=== PATIENT | female | born 1965 | race Caucasian/White ===

== ENCOUNTER 2019-11-16 | Emergency (ER) | payer SELFPAY ==
[2019-11-16 11:08] LABS: HEMATOCRIT 49.5 % (37.0-47.0); HEMOGLOBIN 16.4 g/dl (12.0-16.0); IMMATURE GRANULOCYTES 0.3 % (0.0-5.0); MEAN CELL VOLUME 84.2 fL CALC (80.0-100.0); MEAN CORPUSCULAR HGB 27.9 pG CALC (26.0-32.0); MEAN CORPUSCULAR HGB CONC 33.1 g/L CALC (32.0-36.0); NEUT# 4.96 thou/uL (2.00-7.15); RED BLOOD COUNT 5.88 mill/uL (4.20-5.60); RED CELL DISTRI WIDTH 12.4 % (11.5-15.5)
[2019-11-16 11:48] LABS: ALBUMIN 4.2 g/dL (3.2-5.0); ALKALINE PHOSPHATASE 112 u/l (38-126); ANION GAP 18 (6-22 (CALC)); BILIRUBIN, TOTAL 0.6 mg/dL (0.0-1.4); BUN 13 mg/dL (7-17); BUN/CREATININE RATIO 26 (12-20 (CALC)); CARBON DIOXIDE 25 mmol/l (22-30); CHLORIDE 97 mmol/l (95-108); CREATININE 0.5 mg/dL (0.5-1.0); GFR > 60 ML/MIN (>=60 (CALC)); GFR FOR AFR.AMER. > 60 ML/MIN (>=60 (CALC)); POTASSIUM 4.3 mmol/l (3.5-5.1); SGOT/AST 19 u/l (14-36); SODIUM 135 mmol/l (137-146)
[2019-11-16] MEDS ORDERED: HUMALOG 751000 UNITS IV (12:01)
[2019-11-16 12:20] LABS: INTERNATIONAL NORMALIZED RATIO 0.9 RATIO (0.7-1.3); PROTHROMBIN TIME 9.7 SECONDS (9.0-12.5)
== END 2019-11-16 13:53 | disposition home or self-care (01) | DRG 72 ==
PROVIDERS: Family Medicine
DX: G93.9 Disorder of brain, unspecified (principal); E11.9 Type 2 diabetes mellitus without complications; I10 Essential (primary) hypertension; Z79.4 Long term (current) use of insulin

== ENCOUNTER 2020-04-20 02:03 | Emergency (ER) | payer MEDICAID ==
[~2020-04-20] VITALS: Ht 157.5 cm; Wt 119.0 kg
[~2020-04-20 02:03] MED LIST: HUMALOG 751000 UNITS IV
[2020-04-20 02:54] LABS: IMMATURE GRANULOCYTES 0.5 % (0.0-5.0); MEAN CELL VOLUME 86.9 fL CALC (80.0-100.0); MEAN CORPUSCULAR HGB 28.7 pG CALC (26.0-32.0); NEUT# 11.96 thou/uL (2.00-7.15); RED BLOOD COUNT 4.81 mill/uL (4.20-5.60); RED CELL DISTRI WIDTH 12.8 % (11.5-15.5)
[2020-04-20 02:58] LABS: HEMATOCRIT 41.8 % (37.0-47.0); HEMOGLOBIN 13.8 g/dl (12.0-16.0)
[2020-04-20 03:03] LABS: ALBUMIN 3.4 g/dL (3.2-5.0); ALKALINE PHOSPHATASE 89 u/l (38-126); AMYLASE 94 u/l (30-110); BUN 22 mg/dL (7-17); BUN/CREATININE RATIO 48 (12-20 (CALC)); CHLORIDE 97 mmol/l (95-108); CREATININE 0.5 mg/dL (0.5-1.0); GFR > 60 ML/MIN (>=60 (CALC)); GFR FOR AFR.AMER. > 60 ML/MIN (>=60 (CALC)); LIPASE 973 u/l (23-300); POTASSIUM 3.5 mmol/l (3.5-5.1); SGOT/AST 30 u/l (14-36); SODIUM 134 mmol/l (137-146); TOTAL PROTEIN 6.6 g/dL (6.3-8.2)
[2020-04-20 03:15] LABS: ANION GAP 10 (6-22 (CALC)); CARBON DIOXIDE 31 mmol/l (22-30); MYOGLOBIN 44 ng/mL (0 - 62)
[2020-04-20 05:05] LABS: URINE BILIRUBIN - DIPSTICK NEGATIVE (NEGATIVE); URINE BLOOD DIPSTICK NEGATIVE (NEGATIVE); URINE COLOR YELLOW; URINE GLUCOSE - DIPSTICK >=1000 mg/dL (NEGATIVE); URINE KETONE 40 mg/dL (NEGATIVE); URINE LEUK ESTERASE NEGATIVE (NEGATIVE); URINE NITRITE - DIPSTICK NEGATIVE (Negative); URINE PROTEIN - DIPSTICK NEGATIVE (NEG-TRACE)
[2020-04-20 05:20] VITALS: BP 175/92
== END 2020-04-20 05:20 ==
LOC: ED 02:03
PROVIDERS: Emergency Medicine
DX: R11.10 Vomiting, unspecified (principal); E11.65 Type 2 diabetes mellitus with hyperglycemia; D49.6 Neoplasm of unspecified behavior of brain; I10 Essential (primary) hypertension; Z79.4 Long term (current) use of insulin; Z11.59 Encounter for screening for other viral diseases
CPT/HCPCS: Q9967

== ENCOUNTER 2020-05-01 09:36 | Inpatient (IN) | payer MEDICAID ==
[~2020-05-01] VITALS: Ht 157.5 cm; Wt 113.0 kg
--- NOTE | 2020-05-01 09:36 | NUR ---
PT TO ROOM VIA EMS STRETCHER , PT IN NO DISTRESS. VSS. PT NOTED TO HAVE LT ARM ATAXIA, LT FACIAL DROOP, LT VISUAL FIELD DEFICIT. PT STATES THESE HAVE BEEN PROGRESSIVE EFFECTS OF BRAIN TUMOR OVER LAST 4 MONTHS. PT IS ALERT AND ORIENTED X4 AND HAS SLIGHTLY THICKENED SPEECH. PT HAS NO DRIFT OF UPPER OR LOWER EXTREMITIES BUT STATES PROGRESSIVE WEAKNESS TO LT UPPER AND LOWER EXTREMITY FOR MONTHS
[2020-05-01] MEDS ORDERED: FAMOTIDINE20 M1 PO (10:28)
[2020-05-01] MEDS ORDERED: FLUOXETINE20 MG PO (10:29)
[2020-05-01] MEDS ORDERED: NOVOLIN 70/30 INNLT SC (10:30)
[2020-05-01] MEDS ORDERED: DEXAMETHASON2 MG PO (10:32)
--- NOTE | 2020-05-01 10:36 | NUR ---
FULL BEDBATH GIVEN. PT INCONTINENT OF LOOSE YELLOW STOOLS AND URINE. PURE WICK PLACED. VSS. PT IN NO DISTRESS
[2020-05-01 11:19] LABS: HEMATOCRIT 45.3 % (37.0-47.0); HEMOGLOBIN 14.7 g/dl (12.0-16.0); IMMATURE GRANULOCYTES 0.4 % (0.0-5.0); MEAN CELL VOLUME 86.8 fL CALC (80.0-100.0); MEAN CORPUSCULAR HGB 28.2 pG CALC (26.0-32.0); MEAN CORPUSCULAR HGB CONC 32.5 g/dL CAL (32.0-36.0); NEUT# 7.73 thou/uL (2.00-7.15); RED BLOOD COUNT 5.22 mill/uL (4.20-5.60); RED CELL DISTRI WIDTH 13.2 % (11.5-15.5)
[2020-05-01 11:35] LABS: PROTHROMBIN TIME 10.1 SECONDS (9.0-12.5)
--- NOTE | 2020-05-01 11:36 | NUR ---
PT STATES SHE HAS A HX OF DYSPHAGIA AND USES PUREED DIET AND HONEY THICKENED LIQUIDS. VSS. RESP EVEN AND UNLABORED. CALLED PTS SON AT HER REQUEST TO INFORM OF ADMIT AND REQUEST OF PT TO BRING HER READING GLASSES
[2020-05-01 11:44] LABS: ALBUMIN 3.6 g/dL (3.2-5.0); ALKALINE PHOSPHATASE 80 u/l (38-126); ANION GAP 9 (6-22 (CALC)); BILIRUBIN, TOTAL 0.9 mg/dL (0.0-1.4); BUN 13 mg/dL (7-17); BUN/CREATININE RATIO 19 (12-20 (CALC)); C-REACTIVE PROTEIN 0.8 mg/dL (0-0.9); CARBON DIOXIDE 30 mmol/l (22-30); CHLORIDE 100 mmol/l (95-108); CREATININE 0.7 mg/dL (0.5-1.0); GFR > 60 ML/MIN (>=60 (CALC)); GFR FOR AFR.AMER. > 60 ML/MIN (>=60 (CALC)); MAGNESIUM 1.9 mg/dL (1.6-2.3); POTASSIUM 3.9 mmol/l (3.5-5.1); SGOT/AST 14 u/l (14-36); SODIUM 135 mmol/l (137-146); TOTAL PROTEIN 6.6 g/dL (6.3-8.2)
[2020-05-01 12:11] LABS: TSH, 3RD GENERATION 1.04 uIU/mL (0.47 - 4.68)
--- NOTE | 2020-05-01 12:30 | NUR ---
PT GIVEN PUREED LUNCH TRAY WITH HONEY THICKENED LIQUIDS. PT TOLERATED WELL. NO COUGHING NOTED
--- NOTE | 2020-05-01 15:24 | NUR ---
PT INCONTINENT OF URINE, NATI CARE AND LINEN CHANGE RENDERED. WICK WAS IN PLACE BUT DID NOT CATCH URINE. VSS. PT UPDATED ON WAIT TIME FOR ROOM
--- NOTE | 2020-05-01 16:18 | NUR ---
PT RESTING IN BED, VOICES NO COMPLAINTS OR NEEDS AT THIS TIME. PT ADVISED OF WAIT TIME WHILE WAITING FOR ADMISSION. PT VERBALIZED UNDERSTANDING.
--- NOTE | 2020-05-01 16:20 | NUR ---
SON AT BEDSIDE, SHIRLEY FROM [facility] AND SPOLE TO SON RE: MOTHERS CARE AND PLACEMENT
--- NOTE | 2020-05-01 18:45 | NUR ---
NURSE TO NURSE REPORT CALLED TO [facility] GRAH[facility]. EMILY GRAHAM NOTIFIED PT PUREED DIET WITH HONEY THICKENED LIQUIDS.
--- NOTE | 2020-05-01 19:13 | NUR ---
PT ARRIVED TO [facility] VIA STRETCHER ACCOMPANIED BY ER NURSE, DINNER PROVIDED. MECHANICAL SOFT AND THICKENED LIQUIDS, PT FED SELF TOLERATED WELL. PT HAS A FLAT AFFECT, ALERT AND ORIENTED X3, NO EDEMA. ORIENTED PT TO ROOM AND CALL LIGHT, DISCUSSED POC, PT STATES SHE HAD A BM, PT GIVEN AND PARTIAL BED BATH AND NEW LINENS AND GOWN PROVIDED, NOTED MULTIPLE BRUISES TO BUE, PT STATES FROM LAST HOSPITAL STAY. NOTED JUAN MANUEL TO R SIDE OF HEAD, PT HAS AV SHUNT. JUAN MANUEL TO CHEST. L FACIAL DROOP. PT INCONTINENT, PUREWICK PLACED. NOTED SCAR TO R WHITMAN, PHOTO OBTAINED PT STATES A SPIDER BITE FROM 2007, NO OPEN AREA. NOTED REDNESS AND SCALING TO ELBOWS BILAT, PT STATES FROM PSORIASIS. ADMISSION ASSESSMENT COMPLETED. CALL LIGHT IN REACH,CONTINUE TO MONITOR.
[2020-05-01 19:20] VITALS: BP 135/78
--- NOTE | 2020-05-01 22:06 | NUR ---
PT RESTING IN BED, STATES SHE DOES NOT WANT TO TAKE ANY PILLS AT THIS TIME. CALL LIGHT IN REACH,CONTINUE TO MONITOR.
[2020-05-01 23:39] VITALS: BP 97/62
--- NOTE | 2020-05-02 | NUR ---
PT RESTING IN BED WITH EYES CLOSED, NO SIGNS OF DISTRESS NOTED, RESP EVEN AND UNLABORED. CALL LIGHT IN REACH,CONTINUE TO MONITOR.
--- NOTE | 2020-05-02 03:41 | NUR ---
VITALS OBTAINED, PT VOICES NO NEEDS OR COMPLAINTS AT THIS TIME, CALL LIGHT IN REACH,CONTINUE TO MONITOR.
[2020-05-02 03:42] VITALS: BP 124/72
[2020-05-02 05:57] LABS: URINE BILIRUBIN - DIPSTICK NEGATIVE (NEGATIVE); URINE BLOOD DIPSTICK MODERATE (NEGATIVE); URINE COLOR YELLOW; URINE GLUCOSE - DIPSTICK 250 mg/dL (NEGATIVE); URINE LEUK ESTERASE MODERATE (NEGATIVE); URINE NITRITE - DIPSTICK POSITIVE (Negative); URINE PROTEIN - DIPSTICK TRACE mg/dL (NEG-TRACE)
[2020-05-02 05:58] LABS: URINE KETONE Negative (NEGATIVE)
[2020-05-02 05:59] LABS: URINE BACTERIA MANY hpf; URINE EPITHELIAL CELLS MODERATE EPI/hpf (0-FEW); URINE RBC 25-50 RBC/hpf (0-5); URINE WBC 20-50 WBC/hpf (0-5)
[2020-05-02 06:00] LABS: URINE YEAST MODERATE hpf
[2020-05-02 08:50] VITALS: BP 134/75
--- NOTE | 2020-05-02 08:50 | NUR ---
ASSESSMENT IS COMPLETED: IV SITE IS FREE FROM REDNESS OR EDEMA. HR IS REG,PULSES ARE STRONG X4, ABD IS SOFT WITH ACTIVE BS. BREATH SOUNDS ARE CLEAR BILATERALLY, NO C/O SOB. TELE MONITOR IN PLACE. CONTINUE TO OBSERVE AND MONITOR.
[2020-05-02 10:44] VITALS: BP 122/68
--- NOTE | 2020-05-02 12:30 | NUR ---
PT IS RELAXING IN BED FAMILY HAS BEEN IN TO VISIT WITHPT.
[2020-05-02 15:23] VITALS: BP 128/76
--- NOTE | 2020-05-02 16:30 | NUR ---
PT IS RELAXING IN BED WITH NO DISTRESS NOTED., IV SITE IS FREE FROM REDNESS OR EDEMA
--- NOTE | 2020-05-02 16:42 | NUR ---
A CALL FROM DEPARTMENT OF CHILDREN AND FAMILIES WAS SENT TO THE CASE MANAGEMENT OFFICE.
--- NOTE | 2020-05-02 18:22 | NUR ---
IV SITE STARTED TO LEAK HAVING MARTHA DRAWING IN MACHINE TENDER HELPER TO RESTART
[2020-05-02 18:55] VITALS: BP 154/89
--- NOTE | 2020-05-02 19:45 | NUR ---
PT RESTING IN BED, PT BOOSTED AND REPOSTIONED PER REQUEST. PT ALERT AND ORIENTED. RESPIRATIONS EVEN AND UNLABORED, LUNGS SOUND CLEAR. PEDAL PULSES ARE STRONG. PT DENIES ANY PAIN OR DISCOMFORT AT THIS TIME. SAFETY PRECAUTIONS IN PLACE. WILL CONTINUE TO MONITOR.
[2020-05-02 23:20] VITALS: BP 148/88
--- NOTE | 2020-05-03 01:36 | NUR ---
PT RESTING IN BED, NO S/S OF DISTRESS AT THIS TIME. SAFETY PRECAUTIONS IN PLACE. WILL CONTINUE TO MONITOR.
[2020-05-03 03:34] VITALS: BP 167/89
--- NOTE | 2020-05-03 04:15 | NUR ---
PT BOOSTED UP IN BED PER REQUEST. SAFETY PRECAUTIONS IN PLACE. WILL CONTINUE TO MONITOR.
[2020-05-03 07:33] VITALS: BP 172/86
--- NOTE | 2020-05-03 07:33 | NUR ---
PT RESTING IN BED, NO SIGNS OF DISTRESS NOTED, RESP EVEN AND UNLABORED. PT ALERT AND ORIENTED X3, DISCUSSED POC, PT IS INCONTINENT OF BOWEL AND BLADDER. OFFERED PUREWICK PT DECLINED. ASSESSMENT COMPLETED, CALL LIGHT IN REACH,CONTINUE TO MONITOR.
[2020-05-03 10:40] VITALS: BP 148/68
--- NOTE | 2020-05-03 12:00 | NUR ---
PT RESTING IN BED EATING LUNCH, NO SIGNS OF DISTRESS NOTED, RESP EVEN AND UNLABORED. PT ALERT AND ORIENTED X3, DISCUSSED POC, PT VOICES NO NEEDS OR COMPLAINTS AT THIS TIME, PT HAS JUAN MANUEL TO R HEAD FROM AV SHUNT PLACED IN MARCUS, JUAN MANUEL TO CHEST INTACT, ASSESSMENT COMPLETED, CALL LIGHT IN REACH,CONTINUE TO MONITOR.
[2020-05-03 14:55] VITALS: BP 146/57
--- NOTE | 2020-05-03 16:00 | NUR ---
PT RESTING IN BED, NO SIGNS OF DISTRESS NOTED, RESP EVEN AND UNLABORED. VOICES NO NEEDS OR COMPLAINTS AT THIS TIME. CALL LIGHT IN REACH,CONTINUE TO MONITOR.
[2020-05-03 19:07] VITALS: BP 158/85
--- NOTE | 2020-05-03 20:10 | NUR ---
PT RESTING IN BED ALERT AND ORIENTED. RESPIRATIONS EVEN AND UNLABORED ON RA. LUNGS SOUND DIMINISHED. PEDAL PULSES ARE STRONG. PT REPOSITIONS PER REQUEST, BARRIOR CREME ALPIED TO BOTTOM. SAFETY PRECAUTIONS IN PLACE. WILL CONTINUE TO MONITOR.
--- NOTE | 2020-05-04 00:16 | NUR ---
PT RESTING IN BED. NO S/S OF DISTRESS AT THIS TIME. SAFETY PRECAUTIONS IN PLACE. WILL CONTINUE TO MONITOR.
[2020-05-04 00:35] VITALS: BP 141/80
[2020-05-04 04:10] VITALS: BP 134/79
--- NOTE | 2020-05-04 04:18 | NUR ---
PT RESTING IN BED. NO S/S OF DISTRESS AT THIS TIME. RESPIRATIONS EVEN AND UNLABORED. SAFETY PRECAUTIONS IN PLACE. WILL CONTINUE TO MONITOR.
[2020-05-04 05:51] LABS: HEMATOCRIT 40.6 % (37.0-47.0); HEMOGLOBIN 13.2 g/dl (12.0-16.0); IMMATURE GRANULOCYTES 0.5 % (0.0-5.0); MEAN CELL VOLUME 86.2 fL CALC (80.0-100.0); MEAN CORPUSCULAR HGB CONC 32.5 g/dL CAL (32.0-36.0); NEUT# 7.86 thou/uL (2.00-7.15); RED BLOOD COUNT 4.71 mill/uL (4.20-5.60)
[2020-05-04 06:29] LABS: ALBUMIN 3.1 g/dL (3.2-5.0); ALKALINE PHOSPHATASE 67 u/l (38-126); BUN 14 mg/dL (7-17); BUN/CREATININE RATIO 28 (12-20 (CALC)); CHLORIDE 106 mmol/l (95-108); CREATININE 0.5 mg/dL (0.5-1.0); GFR > 60 ML/MIN (>=60 (CALC)); GFR FOR AFR.AMER. > 60 ML/MIN (>=60 (CALC)); POTASSIUM 4.3 mmol/l (3.5-5.1); SGOT/AST 13 u/l (14-36); SODIUM 135 mmol/l (137-146)
[2020-05-04 06:46] LABS: ANION GAP 10 (6-22 (CALC)); BILIRUBIN, TOTAL 0.4 mg/dL (0.0-1.4); CARBON DIOXIDE 23 mmol/l (22-30)
[2020-05-04 07:23] VITALS: BP 157/85
--- NOTE | 2020-05-04 07:23 | NUR ---
PT RESTING IN BED, NO SIGNS OF DISTRESS NOTED, RESP EVEN AND UNLABORED, PT ALERT AND ORIENTED X3, DISCUSSED POC, PT HAS A FLAT AFFECT, VOICES NO NEEDS OR COMPLAINTS AT THIS TIME. ASSESSMENT COMPLETED, CALL LIGHT IN REACH,CONTINUE TO MONITOR.
[2020-05-04 11:04] VITALS: BP 157/78
--- NOTE | 2020-05-04 12:00 | NUR ---
PT RESTING IN BED, NO SIGNS OF DISTRESS NOTED, RESP EVEN AND UNLABORED, PT VOICES NO NEEDS OR COMPLAINTS AT THIS TIME, CONTINUE TO MONITOR.
--- NOTE | 2020-05-04 14:59 | NUR ---
SPOKE TO MARTHA FROM [facility] REGARDING PT, TRANSFERRED CALL TO PT. CALL LIGHT IN REACH,CONTINUE TO MONITOR.
--- NOTE | 2020-05-04 15:34 | NUR ---
PT RESTING IN BED, REQUESTING PUDDING, NO SIGNS OF DISTRESS NOTED, RESP EVEN AND UNLABORED. CALL LIGHT IN REACH,CONTINUE TO MONITOR.
[2020-05-04 16:30] VITALS: BP 170/80
--- NOTE | 2020-05-04 18:35 | NUR ---
PT BP ELEVATED INFORMED MD, ORDERS TO START NEW MEDICATION DAILY AND START NOW. DISCUSSED WITH PT, VERBALIZED UNDERSTANDING. CALL LIGHT IN REACH,CONTINUE TO MONITOR.
[2020-05-04 18:53] VITALS: BP 155/85
--- NOTE | 2020-05-04 20:20 | NUR ---
PT RESTING IN BED ALERT AND ORIENTED. RESPIRATIONS EVEN AND UNLABORED ON RA, LUNGS SOUND DIMINISHED. PEDAL PULSES STROONG. SAFETY PRECAUTIONS IN PLACE. WILL CONTINUE TO MONITOR.
[2020-05-05 00:11] VITALS: BP 168/85
--- NOTE | 2020-05-05 02:09 | NUR ---
PT RESTING IN BED, RESPIRATIONS EVEN AND UNLABORED ON RA. TELE IN PLACE. NO S/S OF DISTRESS AT THIS TIME. SAFTY PRECAUTIONS IN PLACE. WILL CONTINUE TO MONITOR.
--- NOTE | 2020-05-05 04:04 | NUR ---
PT INCONTINENT OF URINE, PT CLEANED UP, AND SOILED LINENS CHANGED. SAFETY PRECAUTIONS IN PLACE. WILL CONTINUE TO MONITOR.
[2020-05-05 04:21] VITALS: BP 161/78
--- NOTE | 2020-05-05 07:30 | NUR ---
RECIEVED REPORT FROM KRISTY BECERRA. PT RESTING IN SEMI FOWLERS POSITION UPON ENTERING ROOM. INTRODUCED SELF TO PT AND DISCUSSED POC. RESPIRATIONS ARE EVEN AND UNLABORED WITH NO SIGNS OF DRISTRESS. PT DENIES ANY PAIN OR DISCOMFORTS AT THIS TIME. ALL SAFTEY PRECAUTIONS IN PLACE WITH CALLL LIGHT IN REACH .WILL COTNINUE TO MONITOR
[2020-05-05 10:08] VITALS: BP 150/76
--- NOTE | 2020-05-05 10:08 | NUR ---
ASSESSMENT AND VITALS COMPLETED AT THIS TIME. BP 150/76, HR 63, O2 97% ON ROOM AIR. RESPIRATIONS ARE EVEN AND UNLABORED WITH NO SIGNS OF DISTRESS. LUNG SOUNDS ARE CLEAR. HEART RHYTHM IS NORMAL, TELE IN PLACE. BOWEL SOUNDS ARE HYPO ACTIVE. LAST REPORTED BM 05/01/2020. MIRLAX ADMINISTERED WITH MORNING MEDICATIONS. RADIAL AND PEDAL PULSES ARE STRONG WITH NORMAL CAPILLARY REFILL. SKIN IS WARM AND DRY, PRESENT WITH MULTIPLE SMALL BRUISES. PT STATES ITS FROM "BEING POKED WITH THE NEEDLES." IV FLUIDS RUNNING AT 100 ML ORDERED. SITE APPEARS HEALTHY AND PATENT.PT DENIES ANY PAIN OR DISCOMFORTS AT THIS TIME. ALL SAFTEY PRECAUTIONS IN PLACE WITH CALL LIGHT IN REACH. WILL CONTINUE TO MONITOR.
[2020-05-05 11:28] VITALS: BP 157/85
--- NOTE | 2020-05-05 12:31 | NUR ---
PT RESTING IN SEMI FOWLERS POSITON WATCHING TV. RESPIRATIONS ARE EVEN AND UNLABORED WITH NO SIGNS OF DISTRESS.PT DENIES ANY PAIN OR ADDITIONAL NEEDS AT THIS TIME. ALL SAFETY PRECAUTIONS IN PLACE WITH CALL LIGHT IN REACH. WILL CONITNUE TO MONITOR
--- NOTE | 2020-05-05 13:10 | NUR ---
DR. DE LA VEGA AND TERRENCE ANRP AT BEDSIDE DISCUSSING POC WITH PT
--- NOTE | 2020-05-05 16:00 | NUR ---
PT RESTING IN SEMI FOWELERS POSITION WATCHING TV. RESPIRATIONS ARE EVEN AND UNLABORED WITH NO SIGNS OF DISTRESS. PT DENIES ANY PAIN OR DISCOMFORTS AT THIS TIME WITH CALL LIGTH IN REACH. WILL CONTINUE TO MONITOR
[2020-05-05 16:36] VITALS: BP 150/80
[2020-05-05 18:47] VITALS: BP 91/63
--- NOTE | 2020-05-05 19:00 | NUR ---
RECEIVED REPORT FROM NURSE LAIRD PATIENT RESTING IN BED, BREATHING EVEN AND UNLABORED, CALL LIGHT AT REACH.
--- NOTE | 2020-05-05 20:30 | NUR ---
PATIENT ALERT ORINETED ABLE TO MAKE NEEDS KNONW, C/O OF PAIN OCCIPITAL PART OF THE HEAD, WILL MEDICATE.
--- NOTE | 2020-05-05 22:30 | NUR ---
PATIENT REFUSED MOM STATED SHE ALREADY GOT MIRALAX AND PRUNE JUICE.
[2020-05-06] VITALS (9 sets, daily range): BP systolic 139–173; BP diastolic 79–87
--- NOTE | 2020-05-06 00:57 | NUR ---
PATIENT APPEARS TO BE SLEEPING WITH EYES CLOSED BREATHING EVEN AND UNLABOED CALL LIGHT AT REACH.
--- NOTE | 2020-05-06 05:23 | NUR ---
PATIENT APPEARS TO BE SLEEPING WITH EYES CLOSED, BREATHING EVEN AND UNLABORED, CALL LIGHT AT REACH.
--- NOTE | 2020-05-06 07:30 | NUR ---
RECIEVED REPORT FROM KRISTY ADLER. PT RESTING IN SEMI FOWLERS POSITION UPON ENTERING ROOM. INTRODUCED SELF TO PT AND DISCUSSED POC.RESPIRATIONS ARE EVEN AND UNLABORED WITH NO SIGNS OF DISTRESS. PT DENIES ANY PAIN OR DISCOMFORTS AT THIS TIME. ALL SAFETY PRECAUTIONS IN PLACE WITH ALL LIGHT IN REACH. WILL CONTINUE TO MONTIOR
--- NOTE | 2020-05-06 08:41 | NUR ---
ASSESSMENT AND VIATLS COMPLETED AT THIS TIME. REASSESSMENT OF BP RESULTING IN 165/84, HR 62, O2 95% ON ROOM AIR. RESPIRATIONS ARE EVEN AND UNLABORED. LUNG SOUNDS ARE CLEAR. HEART RHYTHM IS NORMAL WITH TELE IN PLACE.BOWEL SOUNDS ARE ACTIVE IN ALL QUADRANTS, LAST REPORTED BM 05/02/20. PT REFUSED MO LAST NIGHT. NOTIFED TERRENCE OF LAST BM, SUPPOSITORY TO BE ADMINISTERED. RADIAL AND PEDAL PULSES ARE STRONG WITH NORMAL CAPILLARY REFILL. PT DOES PRESENT WITH SLIGHT LEFT SIDE WEAKNESS. SKIN IS WARM AND DRY WITH NO BREAKDOWN. IV FLUIDS RUNNING AT 100 ML ORDERED. SITE APPEARS HEALTHY AND PATENT. PT BACK OF HEAD IS SHAVED WITH 5 JUAN MANUEL. PT STATES ITS FROM PREVIOUSLY WHEN SHE HAD TO GET IT DRAINED. PT ALSO PRESENTS WITH JUAN MANUEL ON CHEST FROM WHAT PT STATES TO BE FROM PREVIOUS SHUNT. PT DENIES ANY PAIN OR DISCOMFORTS AT THIS TIME. ALL SAFTEY PRECAUTIONS IN PLACE WITH CALL LIGHT IN REACH. WILL COTNINUE TO MONITOR
--- NOTE | 2020-05-06 08:49 | NUR ---
PHYSICAL THERAPY ON WORKING WITH PT AT THIS TIME.
--- NOTE | 2020-05-06 09:10 | NUR ---
PT note Entered pt. room as she was in semi-fowlers position. Pt. had agreed to participate in physical therapy. Began sesssion w/ heel slides, ankle pumps for improved blood flow. Supine>sit (independent), sit>stand (Min A), VC for correct hand placement and for proper form to ascend to a standing position. Staic standing w/ light weight shifting ant/post, laterally. Pt stated dizziness was not to bad as she was standing. Stand>sit (Independent), sit>supine (Mod A) w/ pt. LE. bed mobility as pt scooted towards head of bed (Min A). Pt. in semi-fowlers position w/ tray table and call jose by bedside. [facility] 6 score 14
--- NOTE | 2020-05-06 09:47 | NUR ---
SUUPOSITORY ADMINISTERED AT THIS TIME. PT TOLERATED WELL. REASSESSMENT OF BP RESULTING IN 146/79, HR 70, O2 95% ON ROOM AIR. ADDITIONAL DOSE OF 5MG NORVASC ORDERED AND ADMINISTERED. PT DENIES ANY PAIN OR ADDITIONAL NEEDS AT THIS TIME. ALL SAFTEY PRECAUTIONS REAMIN IN PLACE WITH CALL LIGHT IN REACH. WILL CONTINUE TO MONITOR
--- NOTE | 2020-05-06 12:53 | NUR ---
PT RESTING IN SEMI FOWLERS POSITION WATCHING TV. RESPIRATIONS ARE EVEN AND UNLABORED WITH NO DISTRESS.PT DENIES ANY PAIN OR DISCOMFORTS AT THIS TIME. ALL SAFTEY PRECAUTIONS REMAIN IN PLACE WITH CALL LIGHT IN REACH. WILL CONTINUE TO MONITOR
--- NOTE | 2020-05-06 14:24 | NUR ---
PT CURRENT IV DUE FOR CHANGING. ATTEMPT TO START NEW IV FAILED TWICE. PT TOLERATED WELL.
--- NOTE | 2020-05-06 14:53 | NUR ---
NEW #22G STARTED IN RIGHT WRIST BY SANTOS MADSEN. PT TOLERATED WELL.
--- NOTE | 2020-05-06 15:27 | NUR ---
PT RESTING IN SEMI FOWLERS POSITION WACTHING TV. RESPIRATIONS ARE EVEN AND UNLABORED. PT DENIES ANY PAIN OR DISCOMFORTS. ALL SAFTEY PRECAUTIONS IN PLACE WITH CALL LIGHT IN REACH. WILL CONTINUE TO MONITOR
--- NOTE | 2020-05-06 16:10 | NUR ---
OT AT PT BEDSIDE
--- NOTE | 2020-05-06 19:00 | NUR ---
RECEIVED REPORT FROM NURSE LAIRD PATIENT RESTING IN BEED WATCHING TV, BREATHING EVEN AND UNLABORED CALL LIGHT AT REACH.
--- NOTE | 2020-05-06 20:30 | NUR ---
PATIENT ALERT ORIENTED ABLE TO MAKE NEEDS KNOWN, WITH ONGOING IV NS @ 100CC/HR INFUSING WELL ON RT WRIST, REMAINS ON TELE SR 68, LBM 05/06, PATIENT REPOSITIONED FOR COMFORT, BREATHING EVEN AND UNLABORED CALL LIGHT AT REACH.
--- NOTE | 2020-05-06 21:00 | NUR ---
INCONTINENT CARE PROVIDED, CALL LIGHT AT REACH.
--- NOTE | 2020-05-07 00:15 | NUR ---
PATIENT RESTING IN BED EYES CLOSED, NOT IN DISTRESS CALL LIGHT AT REACH.
[2020-05-07 03:35] VITALS: BP 157/82
--- NOTE | 2020-05-07 04:39 | NUR ---
INCONTINENT CARE PROVIDE AT THIS TIME, PATIENT REPOSITIONED, CURRENLTY RESTING IN BED, NOT IN DISTRESS CALL LIGHT AT REACH.
--- NOTE | 2020-05-07 07:16 | NUR ---
RECIEVED REPORT FROM KRISTY ADLER. PT RESTING IN LOW FOWLERS POSITION WATCHING TV. PT REQUESTED TO BE PULLED UP IN BED, ASSISTED BY JORDAN PRETTY. RESPIRATIONS ARE EVEN AND UNLABORED WITH NO SIGNS OF DISTRESS. PT DENIES ANY PAIN OR DISCOMFORTS. ALL SAFETY PRECAUTIONS IN PLACE WITH CALL LIGHT IN REACH.WILL CONTINUE TO MONITOR.
[2020-05-07 08:08] VITALS: BP 150/89
--- NOTE | 2020-05-07 08:08 | NUR ---
ASSESSMENT AND VITALS COMPLETED AT THIS TIME. PT IS A/O X3 AND INCONTINENT . BP 150/89, HR 72, O2 97% ON ROOM AIR. RESPIRATIONS ARE EVEN AND UNLABORED WITH NO SIGNS OF DISTRSS. LUNG SOUNDS ARE CLEAR. HEART RHYTHM IS NORMAL WITH TELE IN PLACE. BOWEL SOUNDS ARE ACTIVE IN ALL QUADRANTS WITH NO TENDERNESS. LAST REPORTED BM 05/06/20. RADIAL AND PEDAL PULSES ARE STRONG WITH NORMAL CAPILLARY REFILL. IV #22 IN RW RUNNING @100 ML NS ORDERED, SITE APPEARS HEALTHY AND PATENT. SKIN IS WARM AND DRY. PT APPEARS TO BE SLIGHTLY FLSUHED IN THE FACE, AIR TURNED DOWN AND PT REQUESTED A FAN. SKIN APPEARS TO HAVE MUTIPLE SMALL BRUISES. PT PRESENT WITH LARGE BRUISED AREA ON RIGHT CALF, PT STATES ITS FROM "A SPIDER BITE" PRIOR TO COMING TO [facility]. PT PRESENTS WITH STABLES IN HEAD (5 RIGHT SIDE, 18 LEFT SIDE) CHEST(2) AND RIGHT UPPER ABD(14) FROM WHAT PT STATES IS FROM "SHUNT AT [employer]". MORNING MEDS ADMINISTERED WITH NO DIFFICULTY. PT DENIES ANY PAINS OR NEEDS AT THIS TIME. ALL SAFTEY PRECAUTIONS IN PLACE WITH CALL LIGHT IN REACH. WILL CONTINUE TO MONITOR
--- NOTE | 2020-05-07 10:21 | NUR ---
PHYSICAL THERAPY AT BEDSIDE WORKING WITH PT
--- NOTE | 2020-05-07 10:57 | NUR ---
AT BEDSIDE DISCUSSING POC
[2020-05-07 11:29] VITALS: BP 154/83
--- NOTE | 2020-05-07 11:45 | NUR ---
PT SITTING IN RECYLINER WATCHING TV. RESPIRATIONS ARE EVEN AND UNLABORED WITH NO SIGNS OF DISTRESS. PT DENIES ANY PAIN OR DISCOMFORTS AT THIS TIME. ALL SAFETY PRECAUTIONS REMAIN IN PLACE WITH CALL LIGHT IN REACH. WILL CONTINUE TO MONITOR
--- NOTE | 2020-05-07 12:19 | NUR ---
PT WAS SEEN FOR THERA. DYNAMIC ACTIVITIES. SHE WAS SUPINE IN BED, AGREED TO WORK WITH P.T. SUPINE TO SIT WITH CGA. PT REPORTS SUDDEN ONSET SEVERE DIZZINESS SHE SAT UP. SHE WAS GIVEN ADEQUATE TIME TO STAY IN SITTING POSITION UNTIL DIZZINESS SUBSIDES. SHE THEN STOOD UP WITH MIN A AND WALKER, AGAIN REPORTED DIZZINESS, WAITED UNTIL DIZZINESS SUBSIDED. PT TOOK 3 STEPS AND A PIVOT TURN WITH RW AND MOD A TO TRANSFER AND SIT IN THE BEDSIDE RECLINER. SHE WAS GIVEN VERBAL CUES TO SIT IN THE RECLINER, LEG REST ELEVATED, CALL RAMON AND PHONE BESIDE HER. PT REPORTED FEELING BETTER BUT STILL DIZZY. SHE WAS INSTRUCTED AND PERFORMED ANKLE ROM EX AND LAQ ISOMETRICS. LEFT PT W/O ADVERSE RXNS NOTED OR REPORTED AT THE END OF TX. AMPAC: 11 POINTS
[2020-05-07 16:00] VITALS: BP 134/80
--- NOTE | 2020-05-07 16:10 | NUR ---
PT REQUESTED TO BE ASSISTED BACK INTO BED AT THIS TIME. PT ASSISTED BACK TO BED WITH BOTH JUAN AND JORDAN PRETTY. RESPIRATIONS ARE EVEN AND UNLABORED WITH NO SIGNS OF DISTRESS. PT REQUESTED FOR FAN TO BE TURNED ON. PT DENIES ANY PAIN OR NEEDS AT THIS ITME. ALL SAFTEY PRECAUTIONS IN PLACE WITH CALL LIGHT IN REACH. WILL CONTINUE TO MONITOR
[2020-05-07 18:49] VITALS: BP 126/74
--- NOTE | 2020-05-07 19:15 | NUR ---
REPORT FROM EITAN GRAHAM. PT NOTED SITTING UP IN BED. ALERT AND ORIENTED. NO APAPRENT DISTRESS NOTED. IV SITE APPEARS HEALTHY WITH IVF INFUSING. PT DENIES ANY PAIN OR DISCOMFORT. PURWIK IN PLACE. DISCUSSED POC. PT VERBALIZED UNDERSTANDING. NO CURRENT WANTS OR NEEDS. CALL LIGHT WITHIN REACH. WILL CONTINUE TO MONITOR.
[2020-05-07 23:26] VITALS: BP 130/85
--- NOTE | 2020-05-07 23:33 | NUR ---
PT RESTING IN BED WITH EYES CLOSED. NO APPARENT DISTRESS NOTED. VSS. PURWIK IN PLACE. CALL LIGHT WITHIN REACH. WILL CONTINUE TO MONITOR.
[2020-05-08 03:43] VITALS: BP 148/95
--- NOTE | 2020-05-08 04:29 | NUR ---
PT C/O DIZZINESS, PT BECAME NAUSEATED AND START TO VOMIT. ANALYST PHYSICIAN NOTIFIED. NEW ORDERS RECEIVED. WILL MEDICATED ONCE PROFILED BY PHARMACY. CLEAN GOWN APPLIED AND PT CLEANED UP.
[2020-05-08 07:39] VITALS: BP 155/96
--- NOTE | 2020-05-08 07:39 | NUR ---
PT SITTING IN BED. A&O X3. PT C/O OF SEVERE DIZZINESS AND NAUSEA. EXPLAINED TO PT THAT PHYSICIAN WOULD BE MADE AWARE. NO OTHER NEEDS AT THIS TIME. ASSESSMENT COMPLETED. DISCUSSED POC. CALL LIGHT IN REACH. CONTINUE TO MONITOR.
--- NOTE | 2020-05-08 10:26 | NUR ---
Upon entering room patient had a vomit receptacle on her bed. She reported she was feeling dizzy and nauseous and wont be able to participate today.
[2020-05-08 11:17] VITALS: BP 137/87
--- NOTE | 2020-05-08 11:40 | NUR ---
ANTIVERT GIVEN TO HELP WITH DIZZINESS. WILL REASSESS.
--- NOTE | 2020-05-08 13:55 | NUR ---
PT REPORTS TO BE DIZZY, COMPAZINE IV GIVEN. WILL REASSESS.
--- NOTE | 2020-05-08 14:34 | NUR ---
Clinician attempted to treat patient however she refused stating she had not been feeling well and would not participate. Pt verbalized wanting to see nurse, clinician informed nurse and pt was left with nurse.
[2020-05-08 15:33] VITALS: BP 117/69
--- NOTE | 2020-05-08 15:57 | NUR ---
PT REPORTS TO BE FEELING BETTER AT THIS TIME. INSTRUCTIONS TO TURN AND MOVE SLOWLY WERE GIVEN. PT VERBALIZED UNDERSTANDING. CALL LIGHT IN REACH. CONTINUE TO MONITOR.
[2020-05-08 19:00] VITALS: BP 132/73
--- NOTE | 2020-05-08 19:10 | NUR ---
REPORT FROM MARTHA GRAHAM. PT NOTED SITTING UP IN BED. ALERT AND ORIENTED. NO APAPRENT DISTRESS NOTED. IV SITE APPEARS HEALTHY WITH IVF INFUSING. PT DENIES ANY PAIN OR DISCOMFORT. DISCUSSED POC. PT VERBALIZED UNDERSTANDING. NO CURRENT WANTS OR NEEDS. CALL LIGHT WITHIN REACH. WILL CONTINUE TO MONITOR.
--- NOTE | 2020-05-08 23:29 | NUR ---
ASSISTED PT WITH REPOSITIONING. MEDICATED FOR PAIN AND SLEEP UPON REQUEST. NO OTHER WANTS OR NEEDS. CALL LIGHT WITHIN REACH. WILL CONTINUE TO MONITOR.
[2020-05-08 23:34] VITALS: BP 140/81
[2020-05-09 04:00] VITALS: BP 155/96
--- NOTE | 2020-05-09 04:22 | NUR ---
PT RESTING IN BED WITH EYES CLOSED. NO APPARENT DISTRESS NOTED. RESPIRATIONS EVEN AND UNLABORED. PT WAKES EASILY. VSS. PT C/O DIZZINESS, WILL MEDICATE ORDERED. CALL LIGHT WITHIN REACH WILL CONTINUE TO MONITOR.
[2020-05-09 07:33] VITALS: BP 150/92
--- NOTE | 2020-05-09 08:10 | NUR ---
ASSESSMENT DONE. TELE IN PLACE. PT IS A&O X3. PT DENIES PAIN AT THIS TIME. PT STATED SHE FEEL LESS DIZZY AT THIS TIME. RESPS EVEN AND UNLABORED. IVF INFUSING WELL. SAFETY PRECAUTIONS REINFORCED AND CALL LIGHT IN REACH.
[2020-05-09 11:54] VITALS: BP 140/71
--- NOTE | 2020-05-09 12:02 | NUR ---
Pt. found resting in bed this AM, she refused to get out of bed however in agreement to participate in bed therapeutic exercises. Pt. instructed on and performed long sitting R/LLE AROM ankle pumps, heel slides, hip abductions, hip IR/ER, SAQ exercises and AAROM SLR's x 10 repetitions each exercise. Clinician provided intermititent verbal+tactile cues during ex. for proper form and breathing technique. Post ex. pt. reported feeling great. She was left resting comfortably in bed without questions/concerns. AMPAC score unchanged. Attending nurse informed of pt.'s participation with physical therapy.
--- NOTE | 2020-05-09 12:55 | NUR ---
JUAN MANUEL IN PLACE IN THE BACK OF PT HEAD. PT STATED PAIN IN HEAD AND FEELS DIZZY. MEDICATED PT WITH TYLENOL AND ANTIVERT. PT SON IN ROOM. PT DENIES ANY OTHER NEEDS AT THIS TIME. CALL LIGHT IN REACH.
--- NOTE | 2020-05-09 16:17 | NUR ---
PT IS RESTING IN BED WITH NO S/S OF DISTRESS NOTED. PT STATED THAT MEDICATIONS HELPED WITH HER PAIN AND DIZZINESS. CALL LIGHT IN REACH.
[2020-05-09 16:20] VITALS: BP 138/59
[2020-05-09 16:34] LABS: URINE BILIRUBIN - DIPSTICK NEGATIVE (NEGATIVE); URINE BLOOD DIPSTICK NEGATIVE (NEGATIVE); URINE COLOR YELLOW; URINE GLUCOSE - DIPSTICK >=1000 mg/dL (NEGATIVE); URINE KETONE NEGATIVE (NEGATIVE); URINE LEUK ESTERASE NEGATIVE (NEGATIVE); URINE NITRITE - DIPSTICK NEGATIVE (Negative); URINE PROTEIN - DIPSTICK NEGATIVE (NEG-TRACE); URINE UROBILINOGEN - DIPSTICK 0.2 E.U./dL (0.2)
[2020-05-09 18:50] VITALS: BP 135/78
--- NOTE | 2020-05-09 20:17 | NUR ---
REPORT FROM ANA LUISA WAGNER. PT NOTED SITTING UP IN BED. ALERT AND ORIENTED. NO APAPRENT DISTRESS NOTED. IV SITE APPEARS HEALTHY WITH IVF INFUSING. DISCUSSED POC. PT VERBALIZED UNDERSTANDING. NO CURRENT WANTS OR NEEDS. CALL LIGHT WITHIN REACH. WILL CONTINUE TO MONITOR.
--- NOTE | 2020-05-09 20:19 | NUR ---
COMPLETE BED BATH AND LINEN CHANGE. PT INCONTINENT OF URINE. MEDICATED FOR PAIN IN BACK OF HEAD. BED ADJUSTED SO PT COULD REPOSITION SELF. NO APPARENT DISTRESS NOTED. CALL LIGHT WITHIN REACH. WILL CONTINUE TO MONITOR.
[2020-05-09 23:54] VITALS: BP 136/84
--- NOTE | 2020-05-10 00:09 | NUR ---
PT INCONTINENT OF LARGE AMOUNTS OF URINE. COMPLETE LINEN CHANGE AND PERICARE PROVIDED. PT REPOSITIONED SELF IN BED WITH ASSIST. CALL LIGHT WITHIN REACH. WILL CONTINUE TO MONITOR.
[2020-05-10 03:35] VITALS: BP 144/88
--- NOTE | 2020-05-10 04:03 | NUR ---
ASSISTED PT WITH REPOSITIONING IN BED. NO APPARENT DISTRESS NOTED. PT DENIES ANY PAIN OR DIZZINESS AT THIS TIME. CALL LIGHT WITHIN REACH. WILL CONTINUE TO MONITOR.
[2020-05-10 08:46] VITALS: BP 113/68
--- NOTE | 2020-05-10 08:51 | NUR ---
ASSESSMENT DONE. PT IS A&O X3. PT DENIES PAIN AT THIS TIME. PT STATED SHE IS DIZZY. MEDICATED PT WITH ANTIVERT. IVF INFUSING WELL. PO FLUIDS PROVIDED. PT DENIES ANY OTHER NEEDS AT THIS TIME. CALL LIGHT IN REACH.
[2020-05-10 11:25] VITALS: BP 130/58
--- NOTE | 2020-05-10 12:01 | NUR ---
ASSISTED PT TO SETUP FOR LUNCH. PT DENIES ANY OTHER NEEDS AT THIS TIME. CALL LIGHT IN REACH.
[2020-05-10 14:35] VITALS: BP 134/57
--- NOTE | 2020-05-10 15:16 | NUR ---
PT YELLING STATED SHE IS DIZZY. MEDICATED PT WITH ANTIVERT. PT DENIES ANY OTHER NEEDS AT THIS TIME AND CALL LIGHT IN REACH.
[2020-05-10 19:00] VITALS: BP 124/76
--- NOTE | 2020-05-10 19:01 | NUR ---
REPORT FROM ANA LUISA WAGNER. NOTED RESTING IN BED. NO APPARENT DISTRESS. ALERT AND ORIENTED. PT DENIES ANY PAIN. C/O DIZZINESS, WILL MEDICATE ORDERED. DISCUSSED POC. PT VERBALIZED UNDERSTANDING. IV SITE APPEARS HEALTHY, IVF KVO. NO CURRENT WANTS OR NEEDS. CALL LIGHT WITHIN REACH. WILL CONTINUE TO MONITOR.
--- NOTE | 2020-05-10 21:18 | NUR ---
PT MEDICATED ORDERED. SNACK PROVIDED. PT C/O HEAD PAIN AND REQUESTS SLEEPING PILL AT THIS TIME. MEDICATED FOR BOTH. PT DENIES ANY OTHER WANTS OR NEEDS. CALL LIGHT WITHIN REACH. WILL CONTINUE TO MONITOR.
--- NOTE | 2020-05-11 01:46 | NUR ---
PT RESTING IN BED WITH EYES CLOSED. NO APPARENT DISTRESS NOTED. RESPIRATIONS EVEN AND UNLABORED. CALL LIGHT WITHIN REACH. WILL CONTINUE TO MONITOR.
[2020-05-11 04:00] VITALS: BP 133/81
--- NOTE | 2020-05-11 05:22 | NUR ---
PT RESTING IN BED. NO APPARENT DISTRESS NOTED. RESPIRATIONS EVEN AND UNLABORED. CALL LIGHT WITHIN REACH. WILL CONTINUE TO MONITOR.
[2020-05-11 08:10] VITALS: BP 137/85
--- NOTE | 2020-05-11 08:15 | NUR ---
ASSESSMENT DONE. PT IS A&O X3. PT DENIES PAIN AT THIS TIME. PT STATED SHE FEEL LITTLE DIZZY BUT DENIES MEDICATION. RESPS EVEN AND UNLABORED. IVF INFUSING WELL. PT DENIES ANY NEEDS AT THIS TIME. CALL LIGHT IN REACH.
--- NOTE | 2020-05-11 11:46 | NUR ---
PT IS EATING HER LUNCH WITH NO S/S OF DISTRESS NOTED. FAMILY MEMBER IN ROOM. PT DENIES DIZZINESS OR PAIN. CALL LIGHT IN REACH.
[2020-05-11 15:00] VITALS: BP 135/87
--- NOTE | 2020-05-11 16:08 | NUR ---
PT STATED THAT THE MEDICATION HELPED WITH HER DIZZINES. PO FLUIDS PROVIDED. PT DENIES ANY OTHER NEEDS AT THIS TIME. CALL LIGHT IN REACH.
[2020-05-11 18:46] VITALS: BP 134/83
--- NOTE | 2020-05-11 20:30 | NUR ---
UPON ENTERING ROOM PT FOUND TO BE RESTING IN BED. APPEARS COMFORTABLE AND IN NO APPARENT DISTRESS. RESPIRATIONS ARE REGULAR AND UNLABORED. PHYSICAL ASSESMENT COMPLETE AT THIS TIME. SCHEDULED MED(S) ADMINISTERED, SEE E-MAR. PLAN OF CARE REVIEWED, PT DENIES QUESTIONS, VERBALIZES UNDERSTANDING. DENIES NEEDS AT THIS TIME. ITEMS WITHIN REACH, BED LOCKED IN LOW POSITION W/ BEDRAILS UP X2. CALL RAMON WITHIN REACH, AGREES TO CALL PRN.
--- NOTE | 2020-05-12 00:42 | NUR ---
PT APPEARS TO BE SLEEPING COMFORTABLY, NO APPARENT DISTRESS, RESPIRATIONS REGULAR AND UNLABORED. CALL RAMON REMAINS WITHIN REACH.
[2020-05-12 03:50] VITALS: BP 142/89
--- NOTE | 2020-05-12 05:57 | NUR ---
PHYSICAL ASSESMENT UNCHANGED FROM BEGINING OF SHIFT BASELINE. PT AFEBRILE, HEMODYNAMICS STABLE. DENIES NEEDS AT THIS TIME. ITEMS REMAIN WITHIN REACH. BED REMAINS LOCKED IN LOW POSITION W/ BEDRAILS UPX2. CALL RAMON REMAINS WITHIN REACH, AGREES TO CALL PRN.
--- NOTE | 2020-05-12 07:10 | NUR ---
REPORT RECEIVED FROM KRISTY QUIJANO;PT APPEARS TO BE SLEEPING IN SUPINE POSITION;NO S/S OF DISTRESS NOTED;RESPIRATIONS EVEN AND UNLABORED ON RA;ALL SAFETY PRECAUTIONS IN PLACE WITH BED IN THE LOWEST POSITION AND CALL LIGHT IN REACH;WILL CONTINUE TO MONITOR
--- NOTE | 2020-05-12 08:30 | NUR ---
PT RESTING IN SEMI FOWLERS POSITION,A&O X3;VS OBTAINED AND ASSESSMENT COMPLETED;PT DENIES ANY CURRENT PAIN OR DISCOMFORTS,PAIN SCALE AND REPORTING EDUCATED;RESPIRATIONS EVEN AND UNLABORED RA;ABDOMEN DISTENDED/SOFT ON PALPATION AND ACTIVE IN ALL 4 QUADRANTS;WEAK PEDAL PULSES;REDDENING NOTED TO NATI AREA R/T INCONTINECE,PT REFUSES THE USE OF A PUREWICK CATHETER;5 JUAN MANUEL NOTED TO HEAD AND 14 TO RUQ R/T SHUNT;#22G TO RFA INFUSING NS @ [facility] PER ORDER;ACCUCHECK 282, PT COVERED WITH SLIDING SCALE NOVOLOG PER ORDER;PT DENIES ANY ADDITIONAL NEEDS AND IS ENCOURAGED TO CALL FOR ASSISTANCE IF NEEDED;CALL LIGHT IN REACH;WILL CONTINUE TO MONITOR
[2020-05-12 08:32] VITALS: BP 110/70
--- NOTE | 2020-05-12 09:32 | NUR ---
Pt was instructed to sit edge of bed required VC's for breathing techniques. Clinician instructed pt to perform oral hygiene edge of bed however pt refused. Pt was instructed in UB exercises including shoulder flexion, shoulder abduction and elbow flexion 2x10 each requiring short rest breaks after each set. Pt was able to stand 2 times for 3 seconds requiring Min A and Tactiles cues. Pt maintained 02 levels above 95%.
--- NOTE | 2020-05-12 09:32 | NUR ---
PT note Pt. was in semi-fowlers position upon entering, patient agreed to participate in therapy session. Semi-fowlers position > sit(independent), scooting towards bedside (MIN A). Static sitting balance is well, breathing exercises as pt. static sits. O2 levels remained above 95%. Sit>stand (MIN A), VC for correct hand placement as she ascends to a standing position. Ambulated from bed side to reclining chair approximately 10 steps, pt. was fearful of falling but assured her she would be ok.(MOD A). Stand>sit (MIN A) as she decsends to a seated position tactile cues for proper hand placement. Pt remained in chair as exitied room w/ tray table and call jose by pt. side. Nurse was informed of pt seated in chair.
--- NOTE | 2020-05-12 12:05 | NUR ---
PT OOB RESTING IN RECLINER;RESPIRATIONS EVEN AND UNLABORED ON RA;PT DENIES ANY CURRENT PAIN OR NEEDS;IV SITE PATENT;ACCUCHECK 388, PT COVERED WITH SLIDING SCALE NOVOLOG PER ORDER;PT DENIES ANY ADDITIONAL NEEDS AT THIS TIME AND IS ENCOURAGED TO CALL FOR ASSISTANCE IF NEEDED;CALL LIGHT IN REACH;WILL CONTINUE TO MONITOR
--- NOTE | 2020-05-12 15:40 | NUR ---
PT APPEARS TO BE APPEARS TO BE SLEEPING IM SEMI FOWLERS POSITION;RESPIRATIONS EVEN AND UNLABORED ON RA;NO S/S OF DISTRESS NOTED;IV FLUIDS INFUSING WITH EASE TO RFA;ALL SAFETY PRECAUTIONS REMAIN IN PLACE WITH BED IN THE LOWEST POSITION AND CALL LIGHT IN REACH;WILL CONTINUE TO MONITOR
[2020-05-12 16:00] VITALS: BP 128/67
[2020-05-12 18:56] VITALS: BP 134/80
--- NOTE | 2020-05-12 20:40 | NUR ---
PT RESTING IN BED, ALERT AND ORIENTED. RESPIRATIONS EVEN AND UNLABORED, LUNGS SOUND CLEAR. PEDAL PULSES STRONG. PT REPORTS HAVING MILD PAIN AND COMPLAINS OF BEING WET. PT TO BE MEDICATED PER EMAR. PT CLEANED UP AND SOILED LINENS CHANGED. SAFETY PRECAUTIONSIN PLACE. WILL CONTINUE TO MONITOR.
--- NOTE | 2020-05-13 00:02 | NUR ---
PT RESTING IN BED. RESPIRATIONS EVEN AND UNLABORED ON RA. PT ASKING FOR AN ADDITIONAL SLEEPING PILL, REMINDED PT SHE HAD A SLEEPING PILL. PT BECAME AGGITATED AND BEGAN TO YELL "I KNOW I HAD A SLEEPING PILL, SOMETIMES THEY GIVE TWO!! WELL WHAT ARE WE GOING TO DO ABOUT ME NOT BEING ABLE TO SLEEP!" EDUCATED PT ON SLEEPINF MEDICATION FREQUENCY. PT REFUSED COMFORT MEASURES. SAFETY PRECAUTIONS IN PLACE. WILL CONTINUE TO MONITOR.
[2020-05-13 04:45] VITALS: BP 143/83
--- NOTE | 2020-05-13 07:15 | NUR ---
REPORT RECEIVED FROM KRISTY BECERRA;PT APPEARS TO BE SLEEPING IN SEMI FOWLERS POSITION;NO S/S OF DISTRESS NOTED;RESPIRATIONS EVEN AND UNLABORED ON RA;IV FLUIDS INFUSING WITH EASE PER ORDER;ALL SAFETY PRECAUTIONS NOTED WITH BED IN THE LOWEST POSITION AND CALL LIGHT IN REACH;WILL CONTINUE TO MONITOR
[2020-05-13 08:03] VITALS: BP 128/80
--- NOTE | 2020-05-13 08:10 | NUR ---
PT RESTING IN SEMI FOWLERS POSITION,A&O X3;VS OBTAINED AND ASSESSMENT COMPLETED;PT DENIES ANY CURRENT PAIN OR DISCOMFORTS,PAIN SCALE AND REPORTING EDUCATED;RESPIRATIONS EVEN AND UNLABORED ON RA,CLEAR/DIMINISHED LUNG SOUNDS NOTED;ABDOMEN DISTENDED/SOFT ON PALPATION AND ACTIVE IN ALL 4 QUADRANTS, MOM PROVIDED PER REQUEST TO ASSIST IN BOWEL CARE;REDDENING NOTED TO NATI AREA, PT REFUSES PUREWICK TO PREVENT SKIN BREAKDOWN;WEAK PEDAL PULSES;SKIN INTACT;14 JUAN MANUEL NOTED TO ABDOMEN R/T "SHUNT" AND 5 TO BACK OF HEAD,JOSE;#22G TO LEFT WRIST INFUSING NS @ [facility] PER ORDER,SITE APPEARS HEALTY;ACCCUCHECK 339, PT COVERED WITH SLIDING SCALE NOVOLOG PER ORDER;PT DENIES ANY ADDITIONAL NEEDS AT THIS TIME AND IS ENCOURAGED TO CALL FOR ASSISTANCE IF NEEDED;FALL PRECAUTIONS IN PLACE WITH BED IN THE LOWEST POSITION AND CALL LIGHT IN REACH;WILL CONTINUE TO MONITOR
--- NOTE | 2020-05-13 09:56 | NUR ---
PHYSICAL THERAPY AT BEDSIDE WORKING WITH PT.
--- NOTE | 2020-05-13 10:17 | NUR ---
PT Note Entered PT. room as she was in semi-fowlers position. Miss Milton stated she would participate in therapy session, but did not want to get out of bed. Pt executed ther exercises consisting of heel slides x 20, ankle pumps x 50, LE horizontal abduction x 15, SAQ x 15, quad contractions x 10 w/ 4 sec holds. Pt. LLE noticeably weaker. Pt was in semi-fowlers position as exited room w/ tray table and call jose by pt. side.
--- NOTE | 2020-05-13 11:19 | NUR ---
Entered room as pt was in semi fowlers position and was instructed in performing oral hygiene. Pt agreed and clinician set table up, pt was able to uncrew tooth paste cap and put on toothbrush, pt was able to brush her teeth and rinse her mouth, pt wiped herself when done requiring VC's to complete. Pt was instructed in performing UB exercises including shoulder flexion, elbow flexion, horizontal abduction, and finger flexion. Pt performed 2x10 each with short rest breaks in between. Pt was motivated and in a great mood. Call jose and tray table left at pt's side. [facility] 6 score 14
--- NOTE | 2020-05-13 12:05 | NUR ---
PT RESTING IN SEMI FOWLERS POSITION WITH SON AT BEDSIDE;RESPIRATIONS EVEN AND UNLABORED ON RA;PT DENIES ANY CURRENT PAIN OR NEEDS;IV SITE REMAINS PATENT INFUSING NS PER ORDER;ACCUCHECK WAS 298, PT WAS COVERED WITH SLIDING SCALE NOVOLOG PER ORDER;PT ENCOURAGED TO CALL FOR ASSISTANCE IF NEEDED;CALL LIGHT IN REACH;WILL CONTINUE TO MONITOR
--- NOTE | 2020-05-13 15:25 | NUR ---
PT RESTING IN SEMI FOWLERS POSITION;RESPIRATIONS EVEN AND UNLABORED ON RA;PT DENIES ANY CURRENT PAIN OR DISCOMFORTS;IV FLUIDS INFUSING WITH EASE TO RFA;ASSESSMENT REMAINS UNCHANGED AT THIS TIME;PT ENCOURAGED TO CALL FOR ASSISTANCE IF NEEDED;FALL PRECAUTIONS IN PLACE WITH CALL LIGHT IN REACH;WILL CONTINUE TO MONITOR
[2020-05-13 15:27] VITALS: BP 141/62
--- NOTE | 2020-05-13 16:42 | NUR ---
14 JUAN MANUEL REMOVED FROM ABDOMEN AND 5 JUAN MANUEL REMOVED FROM BACK OF HEAD, PT TOLERATED WELL.WILL CONTINUE TO MONITOR
[2020-05-13 19:10] VITALS: BP 106/72
--- NOTE | 2020-05-13 20:30 | NUR ---
PT RESTING IN BED, ALERT AND ORIENTED. RESPIRATIONS EVEN AND UNLABORED ON RA. LUNGS SOUND CLEAR. PEDAL PULSES STRONG. PT REPORTS HAVING MILD PAIN AT THE BACK OF HER HEAD, PT TO BE MEDICATED PER EMAR ORDERS. PT HAD TWO STAPPLES IN HER CHEST, TO BE REMOVED, PT REFUSED AT THIS TIME STATING SHE WOULD RATHER HAVE THEM REMOVED IN THE MORNING, EDUCATED PT ON THE RISK FOR INFESCTION BY LEAVING THE STAPPLES IN ANY LONGER, PT CONTINUE TO REFUSE TO HAVE THEM REMOVED AT THIS TIME. SAFETY PRECAUTIONS IN PLACE. WILL CONTINUE TO MONITOR.
--- NOTE | 2020-05-14 00:20 | NUR ---
PT RESTING IN BED, RESPIRATIONS EVEN AND UNLABORED ON RA. NO S/S OF DISTRESS AT THIS TIME. SAFETY PRECAUTIONS IN PLACE. WILL CONTINUE TO MONITOR.
[2020-05-14 04:00] VITALS: BP 133/81
--- NOTE | 2020-05-14 04:48 | NUR ---
PT RESTING IN BED, RESPIRATIONS EVEN AND UNLABORED ON RA. NO S/S OF DISTRESS AT THIS TIME. SAFETY PRECAUTIONS IN PLACE. WILL CONTINUE TO MONITOR.
--- NOTE | 2020-05-14 07:15 | NUR ---
REPORT RECEIVED FROM KRISTY BECERRA;PT APPEARS TO BE SLEEPING IN SEMI FOWLERS POSITION;RESPIRATIONS EVEN AND UNLABORED ON RA;NO S/S OF DISTRESS NOTED;IV FLUIDS INFUSING WITH EASE PER ORDER;ALL SAFETY PRECAUTIONS IN PLACE WITH BED IN THE LOWEST POSITION AND CALL LIGHT IN REACH;WILL CONTINUE TO MONITOR
[2020-05-14 08:14] VITALS: BP 141/81
--- NOTE | 2020-05-14 08:15 | NUR ---
PT RESTING IN SEMI FOWLERS POSITION,A&O X3;VS OBTAINED AND ASSESSMENT COMPLETED;PT DENIES ANY CURRENT PAIN OR DISCOMFORTS,PAIN SCALE AND REPORTING EDUCATED;RESPIRATIONS EVEN AND UNLABORED ON RA,CLEAR/DIMINISHED LUNG SOUNDS NOTED;ABDOMEN DISTENDED/SOFT ON PALPATION AND ACTIVE IN ALL 4 QUADRANTS;REDDENING NOTED TO NATI AREA DUE TO INCONTINENCE, PT REFUSES PUREWICK CATHETER TO HELP PREVENT BREAKDOWN;WEAK PEDAL PULSES;#22G TO RIGHT FOREARM INFUSING NS @ [facility] PER ORDER,SITE APPEARS HEALTHT;ACCUCHECK 297, PT COVERED WITH SLIDING SCALE NOVOLOG PER ORDER;PT DENIES ANY ADDITIONAL NEEDS AT THIS TIME;ENCOURAGED TO CALL FOR ASSISTANCE IF NEEDED;CALL LIGHT IN REACH;WILL CONTINUE TO MONITOR
--- NOTE | 2020-05-14 12:00 | NUR ---
PT RESTING IN SEMI FOWLERS POSITION EATING LUNCH WITH SPEECH THERAPY AT BEDSIDE;RESPIRATIONS EVEN AND UNLABORED ON RA;PT DENIES ANY CURRENT PAIN OR NEEDS;IV FLUIDS CONTINUE TO INFUSE WITH EASE TO RFA;ACCUCHECK 311, PT COVERED WITH SLIDING SCALE NOVOLOG PER ORDER;PT DENIES ANY ADDITIONAL NEEDS AND IS ENCOURAGED TO CALL FOR ASSISTANCE AT THIS TIME;CALL LIGHT IN REACH;WILL CONTINUE TO MONITOR
--- NOTE | 2020-05-14 14:23 | NUR ---
PT WAS SEEN FOR PHYSICAL THERAPY AND WAS COOPERATIVE WITH P.T. ACTIVITIES TODAY. THEREX WAS DONE WHICH INCLUDED ACTIVE ROM EX ON B UE AND LE X 10 REPS, ALL PLANES X TACTILE CUES FROM THERAPIST. BED MOB INCLUDING TURNING ON BOTH SIDES FROM SUPINE X MIN A WAS ALSO DONE. PT REPORTED DIZZINESS WITH CHANGES IN POSITION WHICH RESOLVED QUICKLY. DENIES NAUSEA DURING THE TX. STRESSED THE IMPORTANCE OF CHANGING POSITIONS TO PREVENT PRESSURE SORES. AMPAC SCORE TODAY: 10 POINTS
--- NOTE | 2020-05-14 15:06 | NUR ---
PHYSICAL THERAPY AT BEDSIDE WORKING WITH PT.
--- NOTE | 2020-05-14 15:18 | NUR ---
Entered pt's room while pt was sitting up in the bed. Clinician set pt up to perform oral hygiene. Pt was able to uncap toothpaste and spread the toothpaste onto toothbrush with setup. Pt was able to complete oral care. Pt was able to comb her hair lighty. Pt was instructed in performing UB exercises including shoulder flexion, shoulder abduction, elbow flexion, wrist extension, and finger flexion. Pt was able to complete 2x10 of each with VC's. Pt was instructed in performing finger oposition with L hand, pt required R hand to assist. Pt had a positive attitude and is motivated. [facility] 6 score 14 Pt left remote and call jose at bedside within reach.
[2020-05-14 15:23] VITALS: BP 144/85
--- NOTE | 2020-05-14 15:45 | NUR ---
PT RESTING IN SEMI FOWLERS POSITION;RESPIRATIONS EVEN AND UNLABORED ON RA;PT DENIES ANY CURRENT PAIN OR NEEDS;IV SITE PATENT INFUSING NS WITH EASE PER ORDER;PT ENCOURAGED TO CALL FOR ASSISTANCE IF NEEDED;FALL PRECAUTIONS IN PLACE WITH CALL LIGHT IN REACH;WILL CONTINUE TO MONITOR
--- NOTE | 2020-05-14 19:00 | NUR ---
REPORT RECEIVED FROM Jolanta CASTILLO LPN, CARE OF PT ASSUMED AT THIS TIME.
[2020-05-14 19:10] VITALS: BP 139/79
--- NOTE | 2020-05-14 21:10 | NUR ---
UPON ENTERING ROOM PT FOUND TO BE RESTING IN BED. APPEARS COMFORTABLE AND IN NO APPARENT DISTRESS. RESPIRATIONS ARE REGULAR AND UNLABORED. PHYSICAL ASSESMENT COMPLETE AT THIS TIME. SCHEDULED MED(S) ADMINISTERED, SEE E-MAR. PRN COMPAZINE ADMINISTERED FOR C/O DIZZINESS, PRN SONATA FOR SLEEP, AND PRN PERCOCET FOR HEADACHE 6/10 ADMINISTERED. SEE JAN. BEDSIDE GLUCOSE CHECK 352, S.S. NOVOLOG AND SCHEDULED NOVOLIN 70/30 ADMINISTERED. SEE JAN. DIABETIC HS SNACK PROVIDED, PT ASSISTED W/ SET UP. PLAN OF CARE REVIEWED, PT DENIES QUESTIONS, VERBALIZES UNDERSTANDING. DENIES FURTHER NEEDS AT THIS TIME. ITEMS WITHIN REACH, BED LOCKED IN LOW POSITION W/ BEDRAILS UP X2. CALL RAMON WITHIN REACH, AGREES TO CALL PRN.
--- NOTE | 2020-05-14 23:10 | NUR ---
UPON ENTERING ROOM PT APPEARS TO BE SLEEPING. APPEARS COMFORTABLE AND IN NO APPARENT DISTRESS. RESPIRATIONS ARE REGULAR AND UNLABORED. ITEMS REMAIN WITHIN REACH, BED REMAINS LOCKED IN LOW POSITION W/ BEDRAILS UP X2 AND CALL RAMON REMAINS WITHIN REACH.
[2020-05-15 03:30] VITALS: BP 142/83
--- NOTE | 2020-05-15 05:59 | NUR ---
PT APPEARS TO BE SLEEPING COMFORTABLY IN BED. NO APPARENT DISTRESS. RESPIRATIONS REGULAR AND UNLABORED.PHYSICAL ASSESMENT UNCHANGED FROM BEGINING OF SHIFT BASELINE. PT AFEBRILE, HEMODYNAMICS STABLE. DENIES NEEDS AT THIS TIME. ITEMS REMAIN WITHIN REACH. BED REMAINS LOCKED IN LOW POSITION W/ BEDRAILS UPX2. CALL RAMON REMAINS WITHIN REACH, AGREES TO CALL PRN.
--- NOTE | 2020-05-15 06:39 | NUR ---
TROPHY ASSEMBLER REPORTS FINGERSTICK GLUCOSE RESULTS "CRITICAL HIGH", STAT SERUM GLUCOSE CHECK ORDERED, BG DEVOPS DEVELOPER CALLED AND ADVISED.
--- NOTE | 2020-05-15 07:30 | NUR ---
RECIEVED REPORT FROM KRISTY QUIJANO. PT RESTING IN SEMI FOWLERS POSITION WATCHING TV. RESPIRATIONS ARE EVEN AND UNLABORED WITH NO SIGNS OF DISTRESS. PT DENIES ANY PAIN OR DIS COMFORTS AT THIS TIME. ALL SAFETY PRECAUTIONS IN PLACE WITH CALL LIGHT IN REACH. WILL CONTINUE TO MONITOR.
[2020-05-15 07:59] VITALS: BP 141/90
--- NOTE | 2020-05-15 07:59 | NUR ---
ASSESSMENT AND VITALS COMPLETED AT THIS TIME. PT IS A/OX3 AND MAX ASSIST. BP 141/90, HR 69, O2 95% ON ROOM AIR. RESPIRATIONS ARE EVEN AND UNLABORED WITH NO SIGNS OF DISTRESS. LUNG SOUNDS ARE CLEAR. HEART RHYTHM IS NORMAL. BOWEL SOUNDS ARE ACTIVE IN ALL QUADRANTS, LAST REPORTED BM 05/14/20. RADIAL AND PEDAL PULSES ARE STRONG WITH NORMAL CAPILLARY REFILL. SKIN IS WARM AND DRY WITH NO EDEMA OR BREAK DOWN. #22G IN RFA RUNNING WITH FLUIDS AT 20 ORDERED, SITE APPEARS HEALTHY AND PATENT. PT DENIES ANY PAIN OR DISCOMFORTS AT THIS TIME. ALL SAFEY PRECAUTIONS IN PLACE WITH CALL LIGHT IN REACH. WILL CONTINUE TO MONITOR
--- NOTE | 2020-05-15 10:22 | NUR ---
PT AT BEDSIDE WORKING WITH PT AT THIS TIME
--- NOTE | 2020-05-15 11:10 | NUR ---
DR. DE LA VEGA AT BEDSIDE DISCUSSING POC.
--- NOTE | 2020-05-15 12:17 | NUR ---
PT WAS SEEN RESTING IN BED IN HOOKLYING POSITION. PROME AND STRETCHING WERE DONE ON B LE WHICH PT APPRECIATED AND WAS THANKFUL FOR. SHE STATES SHE FELT BETTER AFTERWARDS. PROCEEDED TO BED MOB ACTIVITIES WHICH INCLUDES SLIDING, SCOOTING AND ROLLING ON B SIDES WITH MIN A FROM THERAPIST. PT DENIED DIZZINESS WITH CHANGES IN POSITION, UNLIKE YESTERDAY. SHE WAS INSTRUCTED ON AROME AND LEG ISOMETRICS TO BE DONE IN BED. PT UNDERSTOOD AND AGREED. AMPAC: 10 POINTS
--- NOTE | 2020-05-15 12:30 | NUR ---
PT RESTING IN SEMI FOWLERS POSITION TALKING TO SON AT BEDSIDE. RESPIRATIONS ARE EVEN AND UNLABORED WITH NO SIGNS OF DISTRESS. PT DENIES ANY PAIN OR DISCOMFORTS AT THIS TIME.ALL SAFTEY PRECAUTIONS IN PLACE WITH CALL LIGHT IN REACH.WILL CONTINUE TO MONITOR.
--- NOTE | 2020-05-15 13:17 | NUR ---
PHYSICAL THERAPY AT BEDSIDE WORKING WITH PT
--- NOTE | 2020-05-15 13:52 | NUR ---
Pt seen sitting up propped up in the bed and was instructed to perform oral hygiene. Pt was able to uncap toothpaste and spread it on toothbrush. Pt was able to brush her teeth and rince her mouth requiring setup in bed. Pt was instructed in performing UB exercises for shoulders, elbows, wrist and fingers. Pt was able to perform shoulder flexion, elbow flexion, wrist flexion/extension and finger flexion. Pt was able to complete 2x10 each with VC's. Clinician added a new exercise using a rolled up wash cloth, pt was able to hold it using L hand and squizing x10 with 3 seconds hold. Pt had a positive attitude and was motivated. AMPAC 6 score 14
--- NOTE | 2020-05-15 15:56 | NUR ---
SPOKE WITH OLEGARIO FROM [facility] REGAURDING PT CONTACT PRECAUTIONS AND STATUS AT THIS TIME.
--- NOTE | 2020-05-15 16:45 | NUR ---
PT RESTING IN SEMI FOWLERS POSITION WATCHING TV. RESPIRATIONS ARE EVEN AND UNALBORED WITH NO SIGNS OF DISTRESS. PT DENIES ANY PAINS OR DSICOMFORTS AT THIS TIME. PT INFORMED ON TRANSFER TO [facility]. PT VERBALIZED UNDERSTANDING. AWAITING DISCHARGE ORDERS AT THIS TIME. ALL SAFETY PRECAUTIONS REAMIN IN PLACE WITH CALL LIGHT IN REACH.
[2020-05-15] MEDS ORDERED: AMLODIPINE BESYL5 MG PO (17:32)
[2020-05-15] MEDS ORDERED: PERCOCET 5/325M1 TAB PO (17:32)
[2020-05-15 17:45] VITALS: BP 118/72
--- NOTE | 2020-05-15 18:11 | NUR ---
PT EDUCATED ON DISCHARGE INSTRUCTIONS AND [place]. PT VERBALIZED UNDERSTANDING WITH NO QUESTIONS. PT KNOWS AT TRANSFER AND SCHEDULED ROUSTABOUT TIME IS @1830. IV REMOVED WITH CATHATER STILL INTACT. PT TOLERATED WELL. AWAITING TRANSPORTATION AT THIS TIME.ALL SAFTEY PRECAUTIONS IN PLACE WITH CALL LIGTH IN REACH. WILL CONTINUE TO MOTNITOR
--- NOTE | 2020-05-15 18:41 | NUR ---
[facility] TRANSPORTING PT [facility] AT THIS TIME IN STABLE CONDITION VIA STRETCHER. ALL BELONGINGS AND DISCHARGE INSTRUCTIONS LEFT WITH PT
--- NOTE | 2020-05-15 18:58 | NUR ---
REPORT GIVE TO KRISTY PENA FROM [facility] AT THIS TIME.
== END 2020-05-15 18:45 | DRG 55 ==
LOC: ED 09:36 → ED-I 11:54 → ED 13:09 → ED-I 13:10 → MS2 15:55
PROVIDERS: Family Medicine; Nurse Practitioner Family; Surgery; ADMIT Internal Medicine; ATTEND Internal Medicine
PROC: 3E0234Z Introduction of Serum, Toxoid and Vaccine into Muscle, Percutaneous Approach (ICD-10-PCS; principal; 2020-05-03)
DX: C71.6 Malignant neoplasm of cerebellum (principal); Z68.42 Body mass index [BMI] 45.0-49.9, adult; N39.0 Urinary tract infection, site not specified; R62.7 Adult failure to thrive; I10 Essential (primary) hypertension; E11.65 Type 2 diabetes mellitus with hyperglycemia; R29.810 Facial weakness; R53.1 Weakness; F41.9 Anxiety disorder, unspecified; F32.9 Major depressive disorder, single episode, unspecified; B96.20 Unspecified Escherichia coli [E. coli] as the cause of diseases classified elsewhere; Z79.4 Long term (current) use of insulin; Z98.2 Presence of cerebrospinal fluid drainage device; Z23 Encounter for immunization; Z20.828 Contact with and (suspected) exposure to other viral communicable diseases
CPT/HCPCS: J0133

== ENCOUNTER 2020-11-27 20:14 | Observation (INO) | payer OTHER ==
[~2020-11-27] VITALS: Ht 157.5 cm; Wt 107.0 kg
[~2020-11-27 20:14] MED LIST changes: +AMLODIPINE BESYL5 MG PO; +DEXAMETHASON2 MG PO; +FAMOTIDINE20 M1 PO; +FLUOXETINE20 MG PO; +NOVOLIN 70/30 INNLT SC; +PERCOCET 5/325M1 TAB PO
[2020-11-27] MEDS ORDERED: VISTARIL25 MG PO (20:31)
[2020-11-27 21:33] LABS: IMMATURE GRANULOCYTES 0.5 % (0.0-5.0); MEAN CELL VOLUME 85.8 fL CALC (80.0-100.0); MEAN CORPUSCULAR HGB 28.3 pG CALC (26.0-32.0); NEUT# 8.75 thou/uL (2.00-7.15); RED BLOOD COUNT 5.58 mill/uL (4.20-5.60); RED CELL DISTRI WIDTH 14.4 % (11.5-15.5)
[2020-11-27 21:37] LABS: HEMATOCRIT 47.9 % (37.0-47.0); HEMOGLOBIN 15.8 g/dl (12.0-16.0)
[2020-11-27 21:39] LABS: URINE BILIRUBIN - DIPSTICK NEGATIVE (NEGATIVE); URINE BLOOD DIPSTICK NEGATIVE (NEGATIVE); URINE COLOR YELLOW; URINE GLUCOSE - DIPSTICK >=1000 mg/dL (NEGATIVE); URINE KETONE 40 mg/dL (NEGATIVE); URINE LEUK ESTERASE NEGATIVE (NEGATIVE); URINE NITRITE - DIPSTICK NEGATIVE (Negative); URINE PROTEIN - DIPSTICK NEGATIVE (NEG-TRACE); URINE SPECIFIC GRAVITY 1.015; URINE UROBILINOGEN - DIPSTICK 0.2 E.U./dL (0.2)
[2020-11-27 21:59] LABS: AMYLASE 38 u/l (30-110); ANION GAP 15 (6-22 (CALC)); BUN 19 mg/dL (7-17); BUN/CREATININE RATIO 37 (12-20 (CALC)); CARBON DIOXIDE 26 mmol/l (22-30); CHLORIDE 96 mmol/l (95-108); CREATININE 0.5 mg/dL (0.5-1.0); GFR > 60 ML/MIN (>=60 (CALC)); GFR FOR AFR.AMER. > 60 ML/MIN (>=60 (CALC)); POTASSIUM 3.8 mmol/l (3.5-5.1); SODIUM 134 mmol/l (137-146)
[2020-11-27 22:00] LABS: ALBUMIN 4.2 g/dL (3.2-5.0); ALKALINE PHOSPHATASE 121 u/l (38-126); BILIRUBIN, TOTAL 0.7 mg/dL (0.0-1.4); SGOT/AST 24 u/l (14-36); TOTAL PROTEIN 7.8 g/dL (6.3-8.2)
[2020-11-28 05:50] LABS: HEMATOCRIT 45.5 % (37.0-47.0); HEMOGLOBIN 14.7 g/dl (12.0-16.0); IMMATURE GRANULOCYTES 0.4 % (0.0-5.0); MEAN CELL VOLUME 86.5 fL CALC (80.0-100.0); MEAN CORPUSCULAR HGB 27.9 pG CALC (26.0-32.0); MEAN CORPUSCULAR HGB CONC 32.3 g/dL CAL (32.0-36.0); NEUT# 8.46 thou/uL (2.00-7.15); RED BLOOD COUNT 5.26 mill/uL (4.20-5.60); RED CELL DISTRI WIDTH 14.3 % (11.5-15.5)
[2020-11-28 06:11] LABS: ALBUMIN 3.7 g/dL (3.2-5.0); ALKALINE PHOSPHATASE 104 u/l (38-126); BILIRUBIN, TOTAL 0.9 mg/dL (0.0-1.4); BUN 13 mg/dL (7-17); BUN/CREATININE RATIO 29 (12-20 (CALC)); CARBON DIOXIDE 23 mmol/l (22-30); CHLORIDE 102 mmol/l (95-108); CREATININE 0.4 mg/dL (0.5-1.0); GFR > 60 ML/MIN (>=60 (CALC)); GFR FOR AFR.AMER. > 60 ML/MIN (>=60 (CALC)); SGOT/AST 21 u/l (14-36); SODIUM 135 mmol/l (137-146); TOTAL PROTEIN 6.9 g/dL (6.3-8.2)
[2020-11-28 06:14] LABS: ANION GAP 15 (6-22 (CALC)); POTASSIUM 4.7 mmol/l (3.5-5.1)
[2020-11-28 13:55] VITALS: BP 134/76
[2020-11-28 15:00] VITALS: BP 153/67
[2020-11-28 20:00] VITALS: BP 138/73
[2020-11-29 03:30] VITALS: BP 144/65
[2020-11-29 16:16] VITALS: BP 138/74
[2020-11-29 19:52] VITALS: BP 152/81
[2020-11-30 03:48] VITALS: BP 133/77
[2020-11-30 08:20] VITALS: BP 152/67
[2020-11-30] MEDS ORDERED: SENNA PLUS 50-81 CAP PO (10:35)
[2020-11-30] MEDS ORDERED: MIRALAX MIX-IN17 GM PO (10:35)
== END 2020-11-30 15:23 | disposition home health service (06) ==
LOC: ED 20:14 → ED-I 11-28 00:29 → ED 11-28 00:43 → ED-I 11-28 00:44 → MS2 11-28 12:43
PROVIDERS: Emergency Medicine; Nurse Practitioner; ADMIT Internal Medicine; ATTEND Internal Medicine
DX: K59.00 Constipation, unspecified (principal); R53.81 Other malaise; N39.0 Urinary tract infection, site not specified; C71.9 Malignant neoplasm of brain, unspecified; I10 Essential (primary) hypertension; E11.65 Type 2 diabetes mellitus with hyperglycemia; F41.9 Anxiety disorder, unspecified; E66.01 Morbid (severe) obesity due to excess calories; Z68.42 Body mass index [BMI] 45.0-49.9, adult; Z23 Encounter for immunization; Z79.4 Long term (current) use of insulin; Z74.01 Bed confinement status; Z96.89 Presence of other specified functional implants; Z20.822 Contact with and (suspected) exposure to COVID-19
CPT/HCPCS: G0378

== ENCOUNTER 2021-02-28 | Observation (INO) | payer OTHER ==
[~2021-02-28] MED LIST changes: +MIRALAX MIX-IN17 GM PO; +SENNA PLUS 50-81 CAP PO; +VISTARIL25 MG PO
[2021-02-28 09:53] LABS: HEMATOCRIT 46.1 % (37.0-47.0); HEMOGLOBIN 14.9 g/dl (12.0-16.0); IMMATURE GRANULOCYTES 0.4 % (0.0-5.0); MEAN CORPUSCULAR HGB 27.8 pG CALC (26.0-32.0); MEAN CORPUSCULAR HGB CONC 32.3 g/dL CAL (32.0-36.0); NEUT# 9.06 thou/uL (2.00-7.15); RED BLOOD COUNT 5.36 mill/uL (4.20-5.60); RED CELL DISTRI WIDTH 13.1 % (11.5-15.5)
[2021-02-28 10:15] LABS: ALKALINE PHOSPHATASE 121 u/l (38-126); ANION GAP 14 (6-22 (CALC)); BUN 11 mg/dL (7-17); BUN/CREATININE RATIO 22 (12-20 (CALC)); CARBON DIOXIDE 22 mmol/l (22-30); CHLORIDE 98 mmol/l (95-108); CREATININE 0.5 mg/dL (0.5-1.0); GFR > 60 ML/MIN (>=60 (CALC)); GFR FOR AFR.AMER. > 60 ML/MIN (>=60 (CALC)); LIPASE 37 u/l (23-300); POTASSIUM 4.2 mmol/l (3.5-5.1); SGOT/AST 23 u/l (14-36); SODIUM 130 mmol/l (137-146); TOTAL PROTEIN 7.9 g/dL (6.3-8.2)
[2021-02-28 11:57] LABS: URINE BILIRUBIN - DIPSTICK NEGATIVE (NEGATIVE); URINE BLOOD DIPSTICK TRACE-LYSED (NEGATIVE); URINE COLOR YELLOW; URINE GLUCOSE - DIPSTICK >=1000 mg/dL (NEGATIVE); URINE KETONE 15 mg/dL (NEGATIVE); URINE LEUK ESTERASE NEGATIVE (NEGATIVE); URINE PH 8.5 (4.5-8.0); URINE PROTEIN - DIPSTICK TRACE mg/dL (NEG-TRACE); URINE SPECIFIC GRAVITY 1.015; URINE UROBILINOGEN - DIPSTICK 0.2 E.U./dL (0.2)
[2021-02-28 12:00] LABS: URINE NITRITE - DIPSTICK POSITIVE (Negative)
[2021-02-28 12:16] LABS: URINE BACTERIA MODERATE hpf; URINE RBC 0-2 RBC/hpf (0-5); URINE SQUAMOUS EPITHELIAL CELL FEW EPI/hpf (0-FEW)
[2021-02-28 19:20] VITALS: BP 144/79
[2021-03-01] VITALS (30 sets, daily range): BP systolic 87–152; BP diastolic 47–75
[2021-03-01 06:21] LABS: HEMATOCRIT 43.3 % (37.0-47.0); HEMOGLOBIN 14.2 g/dl (12.0-16.0); IMMATURE GRANULOCYTES 0.5 % (0.0-5.0); MEAN CELL VOLUME 85.7 fL CALC (80.0-100.0); MEAN CORPUSCULAR HGB 28.1 pG CALC (26.0-32.0); MEAN CORPUSCULAR HGB CONC 32.8 g/dL CAL (32.0-36.0); NEUT# 7.95 thou/uL (2.00-7.15); RED BLOOD COUNT 5.05 mill/uL (4.20-5.60); RED CELL DISTRI WIDTH 13.1 % (11.5-15.5)
[2021-03-01 06:31] LABS: ALBUMIN 3.6 g/dL (3.2-5.0); ALKALINE PHOSPHATASE 129 u/l (38-126); ANION GAP 13 (6-22 (CALC)); BUN 12 mg/dL (7-17); BUN/CREATININE RATIO 20 (12-20 (CALC)); CARBON DIOXIDE 25 mmol/l (22-30); CHLORIDE 96 mmol/l (95-108); CREATININE 0.6 mg/dL (0.5-1.0); GFR > 60 ML/MIN (>=60 (CALC)); GFR FOR AFR.AMER. > 60 ML/MIN (>=60 (CALC)); POTASSIUM 4.2 mmol/l (3.5-5.1); SGOT/AST 26 u/l (14-36); SODIUM 130 mmol/l (137-146); TOTAL PROTEIN 6.9 g/dL (6.3-8.2)
[2021-03-01] MEDS ORDERED: HYDROXYZ HCL25 MG PO (07:10)
[2021-03-02 03:50] VITALS: BP 119/69
[2021-03-02 05:08] LABS: HEMATOCRIT 38.8 % (37.0-47.0); HEMOGLOBIN 12.6 g/dl (12.0-16.0); IMMATURE GRANULOCYTES 0.2 % (0.0-5.0); MEAN CELL VOLUME 85.5 fL CALC (80.0-100.0); MEAN CORPUSCULAR HGB 27.8 pG CALC (26.0-32.0); MEAN CORPUSCULAR HGB CONC 32.5 g/dL CAL (32.0-36.0); NEUT# 5.26 thou/uL (2.00-7.15); RED BLOOD COUNT 4.54 mill/uL (4.20-5.60); RED CELL DISTRI WIDTH 13.1 % (11.5-15.5)
[2021-03-02 05:30] LABS: ALBUMIN 3.1 g/dL (3.2-5.0); ALKALINE PHOSPHATASE 119 u/l (38-126); ANION GAP 9 (6-22 (CALC)); BILIRUBIN, TOTAL 0.7 mg/dL (0.0-1.4); BUN 12 mg/dL (7-17); BUN/CREATININE RATIO 25 (12-20 (CALC)); CARBON DIOXIDE 28 mmol/l (22-30); CHLORIDE 99 mmol/l (95-108); CREATININE 0.5 mg/dL (0.5-1.0); GFR > 60 ML/MIN (>=60 (CALC)); GFR FOR AFR.AMER. > 60 ML/MIN (>=60 (CALC)); POTASSIUM 3.6 mmol/l (3.5-5.1); SGOT/AST 23 u/l (14-36); SODIUM 132 mmol/l (137-146); TOTAL PROTEIN 6.3 g/dL (6.3-8.2)
[2021-03-02 07:25] VITALS: BP 135/81
[2021-03-02] MEDS ORDERED: CIPROFLOXACN500 MG PO (08:26)
[2021-03-02] MEDS ORDERED: LOPRESSOR25 MG PO (08:26)
[2021-03-02 10:30] VITALS: BP 127/50
== END 2021-03-02 14:08 | disposition home health service (06) ==
PROVIDERS: Emergency Medicine; ADMIT Internal Medicine
DX: N39.0 Urinary tract infection, site not specified (principal); R11.2 Nausea with vomiting, unspecified; E86.0 Dehydration; E87.1 Hypo-osmolality and hyponatremia; C71.9 Malignant neoplasm of brain, unspecified; G81.94 Hemiplegia, unspecified affecting left nondominant side; I10 Essential (primary) hypertension; E11.65 Type 2 diabetes mellitus with hyperglycemia; I47.1 Supraventricular tachycardia; F41.1 Generalized anxiety disorder; G40.909 Epilepsy, unspecified, not intractable, without status epilepticus; E66.01 Morbid (severe) obesity due to excess calories; B96.4 Proteus (mirabilis) (morganii) as the cause of diseases classified elsewhere; Z68.42 Body mass index [BMI] 45.0-49.9, adult; Z79.4 Long term (current) use of insulin; Z74.01 Bed confinement status; Z92.21 Personal history of antineoplastic chemotherapy; Z98.2 Presence of cerebrospinal fluid drainage device; Z88.0 Allergy status to penicillin; Z20.822 Contact with and (suspected) exposure to COVID-19
CPT/HCPCS: G0378; J1956; Q9967

== ENCOUNTER 2022-08-06 18:57 | Observation (INO) | payer MEDICARE, OTHER ==
[~2022-08-06] VITALS: Ht 157.5 cm; Wt 113.6 kg
[2022-08-06] VITALS (12 sets, daily range): BP systolic 125–167; BP diastolic 60–95
[~2022-08-06 18:57] MED LIST changes: +CIPROFLOXACN500 MG PO; +HYDROXYZ HCL25 MG PO; +LOPRESSOR25 MG PO
--- NOTE | 2022-08-06 19:11 | NUR ---
A/O X3 F WITH REPORTED N/V/D NO C/O ABD PAIN PINK MOIST ORAL MUCOSA.HX OF BRAIN CANCER
[2022-08-06 20:45] LABS: IMMATURE GRANULOCYTES 0.2 % (0.0-5.0); MEAN CELL VOLUME 86.4 fL CALC (80.0-100.0); MEAN CORPUSCULAR HGB 28.7 pG CALC (26.0-32.0); MEAN CORPUSCULAR HGB CONC 33.3 g/dL CAL (32.0-36.0); NEUT# 9.14 thou/uL (2.00-7.15); RED BLOOD COUNT 5.43 mill/uL (4.20-5.60); RED CELL DISTRI WIDTH 12.8 % (11.5-15.5)
[2022-08-06 20:48] LABS: HEMATOCRIT 46.9 % (37.0-47.0); HEMOGLOBIN 15.6 g/dl (12.0-16.0)
--- NOTE | 2022-08-06 20:55 | NUR ---
W/D SSKIN PINK ORAL UCOSA NO N/V OR D
[2022-08-06 20:58] LABS: ALKALINE PHOSPHATASE 95 u/l (38-126); AMYLASE 53 u/l (30-110); ANION GAP 15 (6-22 (CALC)); BILIRUBIN, TOTAL 0.7 mg/dL (0.0-1.4); BUN 11 mg/dL (7-17); BUN/CREATININE RATIO 16 (12-20 (CALC)); CARBON DIOXIDE 27 mmol/l (22-30); CHLORIDE 98 mmol/l (95-108); CREATININE 0.7 mg/dL (0.5-1.0); GFR FOR AFR.AMER. > 60 ML/MIN (>=60 (CALC)); GFR OTHER RACES > 60 ML/MIN (>=60 (CALC)); LIPASE 23 u/l (23-300); POTASSIUM 3.3 mmol/l (3.5-5.1); SGOT/AST 20 u/l (14-36); SODIUM 137 mmol/l (137-146)
[2022-08-06 21:03] LABS: TOTAL PROTEIN 7.7 g/dL (6.3-8.2)
[2022-08-06 21:05] LABS: URINE BLOOD DIPSTICK NEGATIVE (NEGATIVE); URINE COLOR YELLOW; URINE GLUCOSE - DIPSTICK 500 mg/dL (NEGATIVE); URINE KETONE 40 mg/dL (NEGATIVE); URINE LEUK ESTERASE NEGATIVE (NEGATIVE); URINE PH 5.5 (4.5-8.0); URINE PROTEIN - DIPSTICK NEGATIVE (NEG-TRACE); URINE SPECIFIC GRAVITY >=1.030; URINE UROBILINOGEN - DIPSTICK 0.2 E.U./dL (0.2)
[2022-08-06 21:07] LABS: URINE BILIRUBIN - DIPSTICK SMALL (NEGATIVE); URINE NITRITE - DIPSTICK NEGATIVE (Negative)
[2022-08-06 21:11] LABS: MYOGLOBIN 36 ng/mL (0 - 62)
--- NOTE | 2022-08-06 23:15 | NUR ---
NO N/V OR DIARRHEA.PINK MOIST MM
[2022-08-07] VITALS (7 sets, daily range): BP systolic 118–157; BP diastolic 64–87
--- NOTE | 2022-08-07 00:08 | NUR ---
PT REPORT TO NURSE SNELL ON MS
--- NOTE | 2022-08-07 00:13 | NUR ---
pt transported via stretcher in stable conditioN
--- NOTE | 2022-08-07 00:14 | NUR ---
PATIENT ADMITTED TO ROOM 291, VIA STRETCHER. TRANSFERRED PATIENT FROM STRETCHER TO ROOM BED WITH 3 STAFF MEMBERS HELP. PATIENT IS ALERT AND ORIENTED. ABLE TO MAKE NEEDS KNOWN. ANSWERS APPROPRIATELY. ORIENTED PATIENT TO ROOM CALL LIGHT AND SURROUNDINGS. ASSESSMENT COMPLETE. RASH LIKE AREA TO LEFT SIDE OF BACK. PATIENT DENIES ANY PAIN. NO DISTRESS. APPEARS VERY NAUSEOUS. WILL LOOK AT EMAR TO SEE WHAT MEDICATION IS AVAILABLE. PATIENT CLEANED UP DUE TOO LARGE AMOUNTS OF DRIED FECES ON HER FROM HOME. PATIENT ALSO APPEARS TO HAVE OLD SPIDER BITE AREA TO THE RIGHT WHITMAN. BLANCAS PATENT DRAINING DARK YELLOW URINE. BED REMAINS IN LOW POSITION, CALL LIGHT IN REACH.
--- NOTE | 2022-08-07 04:56 | NUR ---
PATIENT RESTING IN BED. REMAINS ALERT. MAKES NEEDS KNOWN. DENIES ANY NAUSEA AT THIS TIME. BED REMAINS IN LOW POSITION. CALL LIGHT IN REACH.
--- NOTE | 2022-08-07 08:00 | NUR ---
RECEIVED REPORT FROM DEPUTY COURT RN. PATIENT IS RESTING IN BED AWAKE IN LOW SEMI-RAHMAN'S POSITION, AWAKE WATCHING TV. ASSEMENT COMPLETED. PATIENT IS A&OX3, ABLE TO VERBALIZE NEEDS. NO SIGNS OF PAIN OR DISCOMFORT NOTED NOR VERBALIZED AT THIS TIME. BED IN LOWEST POSITION, SAFETY PRECAUSTIONS IN PLACE.
--- NOTE | 2022-08-07 12:00 | NUR ---
PATIENT RESTING IN BED AWAKE, EATING LUNCH. PATIENT DENIES ANY PAIN OR DISCOMFORT AT THIS TIME. BED IS IN LOWEST POSITION, SAFETY PRECAUTIONS IN PLACE.
--- NOTE | 2022-08-07 16:00 | NUR ---
PATIENT RESTING IN BED, IN LOW SEMI-RAHMAN'S POSITION, AWAKE, WATCHING TV. PATIENT IS ABLE TO VERBALIZE NEEDS, NO COMPLAINTS VEBALIZED AT THIS TIME. BED IN LOWEST POSITION, CALL LIGHT WITHIN REACH.
--- NOTE | 2022-08-07 20:20 | NUR ---
RECIEVED REPORT ON PT. PT BREATHING EVEN AND NONLABORED. PT DENIES PAIN OR DISCOMFORT. PT ABDOMEN NON-DISTENDED, NON-TENDER WITH ACTIVE BOWEL SOUNDS. IV SITE PT IVF RUNNING ORDERED. IV SITE APPEARS HEALTHY. PT DENIES ANY NEEDS AT THIS TIME. CALL LIGHT IN REACH, ALL SAFETY PRECAUTIONS IN PLACE AT THIS TIME.
--- NOTE | 2022-08-08 00:10 | NUR ---
PT REMAINS IN STABLE CONDITION. BREATHING EVEN AND NON LABORED. PT PLAYIGN GAME ON PHONE. PT DENIES ANY NEEDS AT THIS TIME. CALL LIGHT IN REACH ALL SAFETY PRECAUTIONS IN PLACE AT THIS TIME.
--- NOTE | 2022-08-08 04:16 | NUR ---
PT RESTING IN ROOM, PLAYING GAME ON PHONE. PT BREATHING REMAINS THE SAME. CALL LIGHT IN REACH, SAFETY PRECAUTIONS IN PLACE AT THIS TIME.
[2022-08-08 04:29] VITALS: BP 133/78
[2022-08-08 05:54] VITALS: BP 166/81
--- NOTE | 2022-08-08 06:22 | NUR ---
PRN MEDICATION FOR NAUSEA GIVEN PER PT REQUEST
[2022-08-08 06:58] LABS: ANION GAP 12 (6-22 (CALC)); BUN 10 mg/dL (7-17); BUN/CREATININE RATIO 15 (12-20 (CALC)); CARBON DIOXIDE 25 mmol/l (22-30); CHLORIDE 106 mmol/l (95-108); CREATININE 0.6 mg/dL (0.5-1.0); GFR FOR AFR.AMER. > 60 ML/MIN (>=60 (CALC)); GFR OTHER RACES > 60 ML/MIN (>=60 (CALC)); MAGNESIUM 1.7 mg/dL (1.6-2.3); POTASSIUM 3.4 mmol/l (3.5-5.1); SODIUM 140 mmol/l (137-146)
--- NOTE | 2022-08-08 08:00 | NUR ---
SHIFT CHANGE REPORT, PT AWAKE ALERT AND ORIENTED RESTING IN BED, NO C/O NDISCOMFORT AT THIS TIME, REPOSITIONED AND SET UP FOR MEAL, STATES SHE DOES NOT AMBULATE AT HOME BUT STAYS IN BED AND HER SON TAKES CARE OF HER, INFORMED WILL BE GIVEN BATH LATER AFTER MEAL AND ACCEPTS. CALL RAMON IN REACH AND BED LOCKED IN LOWEST POSITION.
[2022-08-08 11:18] VITALS: BP 150/70
--- NOTE | 2022-08-08 12:00 | NUR ---
C/O NAUSEA THEN VOMITTED, ZOFRAN GIVEN, INFORMED AND WROTE NEW ORDERS.
[2022-08-08 15:28] VITALS: BP 142/75
--- NOTE | 2022-08-08 16:00 | NUR ---
SLEEPING, BREATHING EVEN AND NON-LABORED, CALL RAMON IN REACH.
[2022-08-08 18:50] VITALS: BP 134/51
[2022-08-09 03:47] VITALS: BP 122/59
[2022-08-09 05:26] LABS: ANION GAP 13 (6-22 (CALC)); BUN 6 mg/dL (7-17); BUN/CREATININE RATIO 10 (12-20 (CALC)); CARBON DIOXIDE 26 mmol/l (22-30); CHLORIDE 108 mmol/l (95-108); CREATININE 0.6 mg/dL (0.5-1.0); GFR FOR AFR.AMER. > 60 ML/MIN (>=60 (CALC)); GFR OTHER RACES > 60 ML/MIN (>=60 (CALC)); POTASSIUM 3.7 mmol/l (3.5-5.1); SODIUM 143 mmol/l (137-146)
[2022-08-09 08:05] VITALS: BP 135/73
--- NOTE | 2022-08-09 08:30 | NUR ---
PT RESTING IN HIGH FOWLERS POSITION. ASSESSMENT AND VS COMPLETED. PT STATES FACIAL DROOP IS FROM BRAIN TUMOR. RIGHT WHITMAN REDNESS. DUE TO OLD SPIDER BITE. PT DENIES ADDITIONAL NEEDS AT THE TIME ALL SAFETY PRECAUTIONS IN PLACE.
--- NOTE | 2022-08-09 09:01 | NUR ---
PT GLUCOSE, BOARD READ WRONG READING . BOARD HAS MANY GLUCOSE READING READ FOR WRONG PT. ORIGINAL READING 83. READING READ 182 . INSULIN GIVEN. INDUSTRIAL CHEMISTRY TEACHER NOTIFIED. GLUCOSE REASSESSED 94 DEXTROSE PROVIDED.
--- NOTE | 2022-08-09 09:36 | NUR ---
BLOOD SUGAR RETAKEN . 196 STABLE .
--- NOTE | 2022-08-09 13:09 | NUR ---
PT RESTING IN HIGH FOWLERS POSITION. PT C/O NAUSEA/DIZZY. FREELANCE TRANSLATOR NEW ORDERS IN . MEDICATIONS PROVIDED PER EMAR.
--- NOTE | 2022-08-09 15:50 | NUR ---
CASE MANAGEMENT WORKING ON POSSIBLE DC .
[2022-08-09 16:21] VITALS: BP 135/67
[2022-08-09 19:33] VITALS: BP 139/71
[2022-08-10 04:11] VITALS: BP 142/68
[2022-08-10 06:27] LABS: ANION GAP 10 (6-22 (CALC)); BUN 7 mg/dL (7-17); BUN/CREATININE RATIO 10 (12-20 (CALC)); CARBON DIOXIDE 28 mmol/l (22-30); CHLORIDE 105 mmol/l (95-108); CREATININE 0.7 mg/dL (0.5-1.0); GFR FOR AFR.AMER. > 60 ML/MIN (>=60 (CALC)); GFR OTHER RACES > 60 ML/MIN (>=60 (CALC)); MAGNESIUM 1.9 mg/dL (1.6-2.3); POTASSIUM 3.6 mmol/l (3.5-5.1); SODIUM 139 mmol/l (137-146)
[2022-08-10 07:00] VITALS: BP 150/63
--- NOTE | 2022-08-10 07:48 | NUR ---
PT RESTING IN HIGH FOWLERS POSITION.PT A/O PT ASSESMENT AND VS COMPLETE. PT DENIES NAUSEA OR ANY DIZZINESS AT THE TIME. PT IV SITE NOTED TO RAC NOTED. URINARY CATH IN PLACE . PT DENIES ADDITIONAL NEEDS AT THE TIME ALL SAFETY PRECAUTIONS IN PLACE WITH CALL LIGHT IN REACH.
--- NOTE | 2022-08-10 12:54 | NUR ---
PT RESTING IN HIGH FOWLERS POSITION. PT DENIES NAUSEA AND DIZZINESS AT THE TIME.
[2022-08-10 15:00] VITALS: BP 153/77
--- NOTE | 2022-08-10 16:20 | NUR ---
PT DENIES ADDITIONAL NEEDS AT THE TIME ALL SAFETY PRECAUTIONS IN PLACE WITH CALL LIGHT IN REACH.
--- NOTE | 2022-08-10 16:27 | NUR ---
PT INFORMED AID OF STOMACH BEING UPSET . MEDICATION ORDERS TO BE VERIFIED PER PHARMACY TO BE PROVIDED.
[2022-08-10 19:18] VITALS: BP 140/57
[2022-08-11 04:29] VITALS: BP 140/63
[2022-08-11 06:22] LABS: ANION GAP 11 (6-22 (CALC)); BUN 8 mg/dL (7-17); BUN/CREATININE RATIO 13 (12-20 (CALC)); CARBON DIOXIDE 30 mmol/l (22-30); CHLORIDE 104 mmol/l (95-108); CREATININE 0.6 mg/dL (0.5-1.0); GFR FOR AFR.AMER. > 60 ML/MIN (>=60 (CALC)); GFR OTHER RACES > 60 ML/MIN (>=60 (CALC)); MAGNESIUM 1.9 mg/dL (1.6-2.3); POTASSIUM 3.7 mmol/l (3.5-5.1); SODIUM 141 mmol/l (137-146)
[2022-08-11 06:58] VITALS: BP 144/59
[2022-08-11 07:10] VITALS: BP 144/59
[2022-08-11 09:45] VITALS: BP 144/59
[2022-08-11] MEDS ORDERED: MECLIZINE25 MG PO (13:15)
[2022-08-11] MEDS ORDERED: ZOFRAN4 MG/TAB SL (13:16)
== END 2022-08-11 14:49 | disposition home health service (06) ==
LOC: ED 18:57 → ED-I 21:40 → ED 22:12 → MS2 22:12
PROVIDERS: Emergency Medicine; Internal Medicine; Nurse Practitioner; ADMIT Internal Medicine; ATTEND Internal Medicine
PROC: 0T9B70Z Drainage of Bladder with Drainage Device, Via Natural or Artificial Opening (ICD-10-PCS; principal; 2022-08-06)
PROC: 3E02340 Introduction of Influenza Vaccine into Muscle, Percutaneous Approach (ICD-10-PCS; 2022-08-07)
DX: H81.10 Benign paroxysmal vertigo, unspecified ear (principal); C71.9 Malignant neoplasm of brain, unspecified; I10 Essential (primary) hypertension; E11.9 Type 2 diabetes mellitus without complications; E66.01 Morbid (severe) obesity due to excess calories; Z68.42 Body mass index [BMI] 45.0-49.9, adult; F41.9 Anxiety disorder, unspecified; G40.909 Epilepsy, unspecified, not intractable, without status epilepticus; F41.1 Generalized anxiety disorder; G81.94 Hemiplegia, unspecified affecting left nondominant side; Z74.01 Bed confinement status; Z20.822 Contact with and (suspected) exposure to COVID-19; Z23 Encounter for immunization
CPT/HCPCS: J1650

== ENCOUNTER 2022-09-07 20:46 | Inpatient (IN) | payer MEDICARE, OTHER ==
[~2022-09-07] VITALS: Ht 157.5 cm; Wt 98.0 kg
[~2022-09-07 20:46] MED LIST changes: +MECLIZINE25 MG PO; +ZOFRAN4 MG/TAB SL
--- NOTE | 2022-09-07 20:55 | NUR ---
PT ARRIVED VIA EMS IN A PINK SHIRT AND NO PANTS ON, WITH SOLID FOUL SMELLING FOOD ON HER SHIRT, ASKED EMS WHO REPORTED THEY TRANSPORTED THE SAME PT TO [facility] LAST WEEK WITH THE SAME SHIRT AND THE "FOOD" ON HER SHIRT WAS VOMIT FROM LAST WEEK WELL. EMS STATES SHE LIVES WITH HER SON AND SHE IS BEDBOUND, SUSPECTED NEGLECT. PT WAS CHANGED INTO GOWN AND PLACED ON 3 L OXYGEN. PT IS ALREADY COVID POSITIVE FROM LAST WEEK. GLUCOSE BY EMS WAS 286, PT STATED LAST TIME SHE TOOK HER INSULIN WAS YESTERDAY.
[2022-09-07 21:13] VITALS: BP 136/107
--- NOTE | 2022-09-07 21:13 | NUR ---
DOCTOR IN ROOM TO ASSESS PT, WHEN DOCTOR LIFTED PT TO ASSESS BREATH SOUNDS, PT BUTTOCKS AND BACK WERE RED AND WET TO THE TOUCH. EMS AND PT CORROBORATED LAST WEEK OXYGEN BROKE, SO WAS UNABLE TO GET OXYGEN SINCE LAST WEEK.
[2022-09-07 21:30] VITALS: BP 154/60
[2022-09-07 21:54] LABS: HEMOGLOBIN 13.9 g/dl (12.0-16.0); IMMATURE GRANULOCYTES 0.1 % (0.0-5.0); MEAN CELL VOLUME 88.5 fL CALC (80.0-100.0); MEAN CORPUSCULAR HGB 28.6 pG CALC (26.0-32.0); MEAN CORPUSCULAR HGB CONC 32.3 g/dL CAL (32.0-36.0); NEUT# 6.13 thou/uL (2.00-7.15); RED BLOOD COUNT 4.86 mill/uL (4.20-5.60)
[2022-09-07 22:00] VITALS: BP 136/80
[2022-09-07 22:02] LABS: ALBUMIN 3.5 g/dL (3.2-5.0); ALKALINE PHOSPHATASE 75 u/l (38-126); ANION GAP 10 (6-22 (CALC)); BUN 4 mg/dL (7-17); BUN/CREATININE RATIO 8 (12-20 (CALC)); CARBON DIOXIDE 28 mmol/l (22-30); CHLORIDE 102 mmol/l (95-108); CREATININE 0.5 mg/dL (0.5-1.0); GFR FOR AFR.AMER. > 60 ML/MIN (>=60 (CALC)); GFR OTHER RACES > 60 ML/MIN (>=60 (CALC)); POTASSIUM 4.1 mmol/l (3.5-5.1); SGOT/AST 24 u/l (14-36); SODIUM 137 mmol/l (137-146); TOTAL PROTEIN 6.7 g/dL (6.3-8.2)
[2022-09-07 22:05] LABS: BILIRUBIN, TOTAL 0.4 mg/dL (0.0-1.4)
[2022-09-07 22:10] LABS: D-DIMER 0.22 mg/L (0.19-0.60)
[2022-09-07 22:12] LABS: PROTHROMBIN TIME 9.5 SECONDS (9.0-12.5)
[2022-09-07 22:14] LABS: MYOGLOBIN 27 ng/mL (0 - 62)
--- NOTE | 2022-09-07 22:26 | NUR ---
PT IN ROOM. NO DISTRESS NOTED. CARE RELINQUISHED. REPORT GIVEN TO RNGAVINO,
--- NOTE | 2022-09-07 23:30 | NUR ---
BLOOD CULTURES TAKEN. EKG COMPLETED. BELONGING LIST COMPLETED. LINENS PACKED FOR HOME. PULL UP CHANGED. BUTTOCKS REDDENED BUT NO OPEN AREAS NOTED. DRIED CRUMBS PRESENT. DRIED MIRELA. FRESH ATTENDS/FRESH LINENS. PT ALSO HAS A LARGE FRESH HEALING SCAR PRESENT ON RIGHT WHITMAN. ANTIBIOTICS STARTED.
[2022-09-07 23:46] VITALS: BP 126/77
[2022-09-08] VITALS (7 sets, daily range): BP systolic 134–158; BP diastolic 62–80
--- NOTE | 2022-09-08 00:30 | NUR ---
REPORT RECEIEVED FROM Rocío VINSON RN.
--- NOTE | 2022-09-08 01:00 | NUR ---
PATIENT ASSEMENT COMPLETED. CURRENTLY ON 3L VIA NASAL CANNULA. PATIENT HAS A PRODUCTIVE COUGH, COVID POSITIVE ON PRECAUTIONS. CALL LIGHT AN BEDSIDE TABLE WTIHIN REACH.
--- NOTE | 2022-09-08 01:15 | NUR ---
TO FLOOR VIA STRETCHER WITH MASK. O2 AT 3 LPM NC.
--- NOTE | 2022-09-08 01:36 | NUR ---
ZOFRAN ADMINISTERED, PT COMPLIANT OF NAUSEA, NO EMESIS PRESENT.
--- NOTE | 2022-09-08 04:50 | NUR ---
PATIENT COMPLAINING OF SHORTNESS OF BREATH, CHILDREN COUNSELOR REPORTED TO WRITTER. OXYGEN SATURATION 96%. WHEN WRITTER IN TO ASSES, PATIENT DENIES SHORTNESS OF BREATH AND INSTEAD HANDS A WASHCLOTH TO NURSE AND ASKS FOR IT TO BE MOISTENED.
--- NOTE | 2022-09-08 06:40 | NUR ---
PATIENTS GLUCOSE WAS 253 @0630
--- NOTE | 2022-09-08 08:00 | NUR ---
GOT REPORT FROM AQUATIC PHYSIOTHERAPIST NURSE. PATIENT IS AOX3. PATIENT IS SITTING UP IN BED EATING BREAKFAST AND WATCHING TV. PATIENT IS REFUSING BED BATH OR CHANGING. PATIENT'S BED IS SOAKED WITH URINE. GOT PATIENT TO AGREE TO CHANGE DEPENDS AND BED SHEETS. PATIENT STILL REFUSED BATH. CALL LIGHT AND BEDSIDE TABLE ARE IN REACH OF PATIENT AND ADVISED TO CALL IF NEEDING ANYTHING. PATIENT VERBALIZED UNDERSTANDING.
--- NOTE | 2022-09-08 12:00 | NUR ---
PATIENT IS RESTING. NO SXS OF DISTRESS. CALL LIGHT AND BEDSIDE TABLE WITH REACH. BED ALARM ON. ADVISED TO CALL IF NEEDING ANYTHING. PATIENT VERBALIZED UNDERSTANDING.
--- NOTE | 2022-09-08 16:00 | NUR ---
PATIENT IS RESTING. NO SXS OF DISTRESS. CALL LIGHT AND BEDSIDE TABLE WITH REACH. BED ALARM ON. ADVISED TO CALL IF NEEDING ANYTHING. PATIENT VERBALIZED UNDERSTANDING.
--- NOTE | 2022-09-09 04:25 | NUR ---
PATIENT PULLED OUT IV. NEW IV PLACED IN RT FA.
[2022-09-09 04:27] VITALS: BP 156/78
[2022-09-09 06:31] VITALS: BP 119/67
[2022-09-09 07:13] LABS: HEMATOCRIT 39.5 % (37.0-47.0); HEMOGLOBIN 12.9 g/dl (12.0-16.0); IMMATURE GRANULOCYTES 0.7 % (0.0-5.0); MEAN CORPUSCULAR HGB 29.1 pG CALC (26.0-32.0); MEAN CORPUSCULAR HGB CONC 32.7 g/dL CAL (32.0-36.0); NEUT# 3.81 thou/uL (2.00-7.15); RED BLOOD COUNT 4.44 mill/uL (4.20-5.60); RED CELL DISTRI WIDTH 12.9 % (11.5-15.5)
[2022-09-09 07:30] LABS: ALBUMIN 2.9 g/dL (3.2-5.0); ALKALINE PHOSPHATASE 66 u/l (38-126); ANION GAP 10 (6-22 (CALC)); BILIRUBIN, TOTAL 0.5 mg/dL (0.0-1.4); BUN 6 mg/dL (7-17); BUN/CREATININE RATIO 12 (12-20 (CALC)); C-REACTIVE PROTEIN 3.8 mg/dL (0-0.9); CARBON DIOXIDE 30 mmol/l (22-30); CHLORIDE 102 mmol/l (95-108); CREATININE 0.6 mg/dL (0.5-1.0); GFR FOR AFR.AMER. > 60 ML/MIN (>=60 (CALC)); GFR OTHER RACES > 60 ML/MIN (>=60 (CALC)); POTASSIUM 3.8 mmol/l (3.5-5.1); SGOT/AST 14 u/l (14-36); SODIUM 137 mmol/l (137-146); TOTAL PROTEIN 5.6 g/dL (6.3-8.2)
[2022-09-09 07:31] VITALS: BP 119/67
--- NOTE | 2022-09-09 07:40 | NUR ---
PT RESTING IN HIGH FOWLERS POSITION. PT HX OF BRAIN TUMOR. PT IS ORIENTED TO SELF. ABLE TO STATE NAME. HEART RHYTM NOTED. REPSIRATIONS UPPER AIR WAY UNCLEAR. SUCTION TO BE PROVIDED IF PT UNABLE TO REMOVE PHELM. ALL SAFETY PRECAUTIONS IN [place] CALL LIGHT IN REACH.
[2022-09-09 14:03] VITALS: BP 141/75
--- NOTE | 2022-09-09 16:10 | NUR ---
PT RESTING IN SEMI FOWLERS POSITION. PT DENIES ADDITIONAL NEEDS AT THE TIME.
[2022-09-09 18:22] VITALS: BP 135/75
--- NOTE | 2022-09-09 19:20 | NUR ---
PATIENT ASSEMENT COMPLETED AT THIS TIME. PATIENT REQUESTING HER FLUIDS BE THICKER BECAUSE SHE WAS TOLD THIS BY HER ONCOLOGIST.
--- NOTE | 2022-09-10 | NUR ---
PATIENT CONFUSED HOLDING CALL LIGHT AND ASKING IF THIS IS HER CALL LIGHT. REORIENTED PATIENT TO CALL LIGHT AND ITS USES. PATIENT VERBALIZES UNDERSTADNING BUT CONTINUES TO USE CALL LIGHT AND ASK HOW TO USE THE CALL LIGHT.
[2022-09-10 03:54] VITALS: BP 140/77
--- NOTE | 2022-09-10 04:00 | NUR ---
PATIENT REMOVED PUREWICK AT THSI TIME. PARTIAL BED BATH AND LINEN CHANGED,
[2022-09-10 05:29] LABS: HEMATOCRIT 40.4 % (37.0-47.0); IMMATURE GRANULOCYTES 0.4 % (0.0-5.0); MEAN CELL VOLUME 88.4 fL CALC (80.0-100.0); MEAN CORPUSCULAR HGB 28.4 pG CALC (26.0-32.0); MEAN CORPUSCULAR HGB CONC 32.2 g/dL CAL (32.0-36.0); NEUT# 3.5 thou/uL (2.00-7.15); RED BLOOD COUNT 4.57 mill/uL (4.20-5.60); RED CELL DISTRI WIDTH 12.9 % (11.5-15.5)
[2022-09-10 05:31] LABS: URINE BILIRUBIN - DIPSTICK NEGATIVE (NEGATIVE); URINE BLOOD DIPSTICK TRACE-INTACT (NEGATIVE); URINE COLOR YELLOW; URINE GLUCOSE - DIPSTICK >=1000 mg/dL (NEGATIVE); URINE KETONE 15 mg/dL (NEGATIVE); URINE LEUK ESTERASE NEGATIVE (NEGATIVE); URINE PH 6.5 (4.5-8.0); URINE PROTEIN - DIPSTICK NEGATIVE (NEG-TRACE)
[2022-09-10 05:39] LABS: URINE NITRITE - DIPSTICK NEGATIVE (Negative)
[2022-09-10 05:40] LABS: URINE YEAST MANY hpf
[2022-09-10 06:08] LABS: ALBUMIN 3.1 g/dL (3.2-5.0); ALKALINE PHOSPHATASE 70 u/l (38-126); ANION GAP 13 (6-22 (CALC)); BILIRUBIN, TOTAL 0.4 mg/dL (0.0-1.4); BUN 10 mg/dL (7-17); BUN/CREATININE RATIO 19 (12-20 (CALC)); CARBON DIOXIDE 30 mmol/l (22-30); CHLORIDE 99 mmol/l (95-108); CREATININE 0.5 mg/dL (0.5-1.0); GFR FOR AFR.AMER. > 60 ML/MIN (>=60 (CALC)); GFR OTHER RACES > 60 ML/MIN (>=60 (CALC)); POTASSIUM 4.4 mmol/l (3.5-5.1); SGOT/AST 17 u/l (14-36); SODIUM 137 mmol/l (137-146); TOTAL PROTEIN 5.9 g/dL (6.3-8.2)
[2022-09-10 06:36] VITALS: BP 147/76
--- NOTE | 2022-09-10 07:00 | NUR ---
RECEIVE REPORT FROM SAMIRA WAGNER.
[2022-09-10 07:34] VITALS: BP 147/76
--- NOTE | 2022-09-10 08:00 | NUR ---
PATIENT ALERT AND ORIENTED X3. RESTING PLEASANT IN BED. ASSESSMENT HEAD-TP TOE IS COMPLETE. PATIENT IS EDUCATED ABOUD MEDICATIONS AND NURSING PLAN FOR TODAY PT REFER UNDERSTAND. SAFETY AND FALL PRECAUTIONS IN PLACE. CALL LIGHT WITHIN IN REACH.
--- NOTE | 2022-09-10 12:00 | NUR ---
PATIENT RESTING IN BED PLEASANT AT THIS TIME. SAFETY AND FALL PRECAUTIONS IN PLACE. CALL LIGHT WITHIN IN REACH.
--- NOTE | 2022-09-10 12:00 | NUR ---
PATIENT RESTING IN BED PLEASANT AT THIS TIME. SAFETY AND FALL PRECAUTIONS IN PLACE. CALL LIGHT WITHIN IN REACH.
[2022-09-10 14:21] VITALS: BP 134/65
[2022-09-10 15:20] VITALS: BP 134/65
--- NOTE | 2022-09-10 16:00 | NUR ---
PATIENT RESTING IN BED PLEASANT AT THIS TIME. MEDICATIONS DONE. SAFETY AND FALL PRECAUTIONS IN PLACE. CALL LIGHT WITHIN IN REACH.
[2022-09-10 18:09] VITALS: BP 124/51
--- NOTE | 2022-09-10 19:10 | NUR ---
REPORT RECEIVED FROM Linda MOORE RN.
--- NOTE | 2022-09-11 01:00 | NUR ---
PATIENT RESTING COMOFRTABLY. ANTIBIOTIC COMPLETED AT THIS TIME. PATIENT IN NO APAPRENT DISTRESS. CALL LIGHT AND BEDSIDE TABLE WITHIN REACH.
--- NOTE | 2022-09-11 03:00 | NUR ---
LISANDRA INSITENT ON BEING SUCCIONED STATES SHE HAS THROW UP IN HER THROAT. WRITTER IN TO ASSNICOLE, NO THROW U, PATIENT HAS MUCUS IN HER THROAT, NOT ABLETO REACH MAI DENNIS. EDUCATED PATIENT ON IMPORTANCE OF COUGHING AND DEEPBREATHING TO HELP CLEARHER THROAT. PATIENT STATES SHE AGREES BUT ASSOON WRITTER LEAVES ROOM SHE CALLS AGAIN FOR SAME REASON. REINFOERMCEMENT NEEDED.
--- NOTE | 2022-09-11 05:00 | NUR ---
PATIENT CALLING EVERY 5 MINUTES. WRITTER IN ROOM TO ADDRESS PATIENTS CONCERNS. PATIENT WANTS TO BE PULLED UP, ASSITED PATIENT INTO POSTION, PATIENT ABLE TO PULL HER SELF UP IN BED. SOON WRITTER IS OUT OF ROOM PATIENT PRESSES CALL LIGHT AND AGAIN AND ASKS TO BE PULLED UP AGAIN. PATIENT STATES SHE IS UPSET BECAUSE THE "GIRL" WHO WAS JUST HERE TOOK HER BLOOD. REASSURED PATIENT THAT IT IS WHAT HER JOB IS AND THAT SHE DID NOT MEAN HARM WHEN DOING SO. PATIENT CONTINUES TO CALL. PATIENT REPORTS NOT BEING ABLE TO FIND HER CALL LIGHT, CYCLE GOES ON FOR A FEW MINUTES. SPOKE WITH PATIENT REGARDING HER NEEDS. ASKED PATIENT TO PLEASE LET WRITTER KNOW WHAT SHE MAY NEED BEFORE WRITTTER LEAVES. PATIENT STATES SHE IS GOOD NOW BUT SOON WRITTER LEAVES PATIENT CALLS AGAIN. PATIENT IS IN NO DISTRESS AT THIS TIME. BUT CONTINUES TO CALL ABOUT SAME ISSUES.
[2022-09-11 05:03] LABS: HEMATOCRIT 41.8 % (37.0-47.0); HEMOGLOBIN 13.5 g/dl (12.0-16.0); IMMATURE GRANULOCYTES 0.6 % (0.0-5.0); MEAN CELL VOLUME 89.3 fL CALC (80.0-100.0); MEAN CORPUSCULAR HGB 28.8 pG CALC (26.0-32.0); MEAN CORPUSCULAR HGB CONC 32.3 g/dL CAL (32.0-36.0); NEUT# 3.85 thou/uL (2.00-7.15); RED BLOOD COUNT 4.68 mill/uL (4.20-5.60); RED CELL DISTRI WIDTH 12.9 % (11.5-15.5)
[2022-09-11 05:28] LABS: ALKALINE PHOSPHATASE 64 u/l (38-126); ANION GAP 11 (6-22 (CALC)); BILIRUBIN, TOTAL 0.4 mg/dL (0.0-1.4); BUN 15 mg/dL (7-17); BUN/CREATININE RATIO 25 (12-20 (CALC)); C-REACTIVE PROTEIN 2.7 mg/dL (0-0.9); CARBON DIOXIDE 31 mmol/l (22-30); CHLORIDE 102 mmol/l (95-108); CREATININE 0.6 mg/dL (0.5-1.0); GFR FOR AFR.AMER. > 60 ML/MIN (>=60 (CALC)); GFR OTHER RACES > 60 ML/MIN (>=60 (CALC)); POTASSIUM 3.9 mmol/l (3.5-5.1); SGOT/AST 16 u/l (14-36); SODIUM 140 mmol/l (137-146); TOTAL PROTEIN 5.7 g/dL (6.3-8.2)
--- NOTE | 2022-09-11 05:30 | NUR ---
WENT IN TO CHANGE PATIENT AT THIS TIME AND GET WEIGHT. PATIENT REFUSED TO BE CHANGED OR WEIGHED. EXPLAINED TO PATIENT THAT SHE COULDNT LAY IN THE BED SOILED. PATIENT AGREED TO BE CHANGED AND WHEN TURNING THE PATIENT SHE STATES "MY BUTT WASNT THIS RED WHEN I FIRST GOT HERE, WAIT UNTIL MY SON SEES IT, YOU GUYS CAN BE FINED FOR THAT". EXPLAINED TO PATIENT THE IMPORTANCE OF BEING CHANGED WHEN SOILED. REPORTED TO NURSE.
--- NOTE | 2022-09-11 05:39 | NUR ---
PATIENT REFUSING TO BE CHNAGED AND WEIGHED AT THIS TIME. FILLER BLOCK INSERTER REMOVER ADVISED PATIENT SHE WOULD LIEK TO CLEAN HER UP BECAUSE THE PUREWICK WAS NOT POSITIONED CORRECTLY AND HER BED IS WET. PATIENT STATES "YOU DO WHAT I SAY AND IM NOT GETTING CHANGED, YOU ARE NOT DOING ANYTHING TO ME." ATTEMPT BY OTHER FILLER BLOCK INSERTER REMOVER, PATIENT ALLOWED THIS FILLER BLOCK INSERTER REMOVER, Lee PRITCHETT TO CLEAN HER UP.
--- NOTE | 2022-09-11 05:46 | NUR ---
PT WAS ASKED IF WE COULD CHANGE HER. SHE DECLINED. NURSE WAS NOTIFIED. 10MIN LATER A AJAY ORTEGA AND I WENT BACK IN TO ASK AGAIN AND SHE SAID WE COULD CHANGE HER, BUT SHE HAD THE RIGHT TO REFUSE, WE CHANGED HER THEN ASKED TO GET HER WEIGHT ON THE CHERRY SHE DECLINED AND AGAIN SAID SHE HAD THE RIGHT TO REFUSE WE NOTIFIED THE NURSE AND DOCUMENTED THE BED WEIGHT.
--- NOTE | 2022-09-11 05:52 | NUR ---
PATIENTDECLINED CHERRY WEIGHT, SUPERVISOR PUBLIC HE[employer] NURSING WEIGHED ON BED SCALE. 99KG.
[2022-09-11 06:41] VITALS: BP 124/51
--- NOTE | 2022-09-11 07:52 | NUR ---
PT RESTING ON LEFT SIDE A/O ASSESSMENT COMPLETED VS PT STATED SHE CAN NOT BREATHE. PT EDUCATED TO BREATHE THROUGH HER NOSE AND PUT HER MOUTH. INHALER PROVIDED. PT STATED FEELING NAUSEASTED. ZOFRAN PROVIDED. PT DENIES ADDITIONAL NEEDS AT THE TIME. PT TO BE MEDICATED PER EMAR. IV SITE NOTED. ALL SAFETY PRECAUTIOSN IN PLACE WITH CALL LIGHT IN REACH.
--- NOTE | 2022-09-11 12:31 | NUR ---
PT DENIES ADDITIONAL NEEDS OTHER THAN REPOSITIONING.ALL SAFETY PRECAUTIONS IN PLACE CALL LIGHT IN REACH.
[2022-09-11 14:34] VITALS: BP 124/60
--- NOTE | 2022-09-11 16:25 | NUR ---
IV OCCLUDED SWOLLEN PT IV REMOVED PROIVDER INFORMED. PATIENT RELATIONS LIAISON INFORMED WILL TRY FOR NEW IV.
[2022-09-11 18:07] VITALS: BP 132/71
[2022-09-11 19:00] VITALS: BP 132/71
--- NOTE | 2022-09-11 20:30 | NUR ---
PT IS IN BED WATCHING TV. PT IS REFUSING TO BE CHANGCE STATES SHE IS TO COMFORTABLE. PT EDUCATED ON THE IMPORTACE TO BE CHAMGE. PUT CONTINUE STO REFUSED BUT FINALLY AGRESS TO BE CHANGE. ASSESMENT COMPLETEDDENIES PAIN OR DISCOMFORT.
--- NOTE | 2022-09-11 22:11 | NUR ---
Patient was asked to be changed, and cleaned up because patient was soiled. Patient decline being cleaned nurse was notified.
--- NOTE | 2022-09-12 00:42 | NUR ---
PT IN BED RESTING WITH EYES CLLSED BREATINHG EVEN AND ALABORED. NO S/S OF DISTRESS NOTED. CALL LIGHT IN REACH AND BED IN LOWEST POSITION
[2022-09-12 04:00] VITALS: BP 148/70
[2022-09-12 04:30] VITALS: BP 148/70
--- NOTE | 2022-09-12 04:50 | NUR ---
Patient refused when asked to be change, patient is soiled. Patient refused to be weighted when asked. Bed scale 99.3 kg.
--- NOTE | 2022-09-12 04:53 | NUR ---
PT IS REFUSING TO BE CHANGE STATES IF I MOVE I AM SCARED RO VOMIT. PT EDUCATED ON THE INPORTANCE OF CHANGING. BUT CONTINUES TO REFUSED. PT MEDICATED FOR NAUSEA AND A HEADACHE. CALL LIGHT IN REACH AND BED IN LOWEST POSITION
[2022-09-12 05:35] LABS: HEMATOCRIT 41.2 % (37.0-47.0); HEMOGLOBIN 13.2 g/dl (12.0-16.0); IMMATURE GRANULOCYTES 0.3 % (0.0-5.0); MEAN CELL VOLUME 88.6 fL CALC (80.0-100.0); MEAN CORPUSCULAR HGB 28.4 pG CALC (26.0-32.0); NEUT# 4.54 thou/uL (2.00-7.15); RED BLOOD COUNT 4.65 mill/uL (4.20-5.60); RED CELL DISTRI WIDTH 12.6 % (11.5-15.5)
[2022-09-12 05:43] LABS: ALBUMIN 3.2 g/dL (3.2-5.0); ALKALINE PHOSPHATASE 64 u/l (38-126); ANION GAP 10 (6-22 (CALC)); BILIRUBIN, TOTAL 0.5 mg/dL (0.0-1.4); BUN 12 mg/dL (7-17); BUN/CREATININE RATIO 22 (12-20 (CALC)); CARBON DIOXIDE 31 mmol/l (22-30); CHLORIDE 100 mmol/l (95-108); CREATININE 0.5 mg/dL (0.5-1.0); GFR FOR AFR.AMER. > 60 ML/MIN (>=60 (CALC)); GFR OTHER RACES > 60 ML/MIN (>=60 (CALC)); POTASSIUM 3.6 mmol/l (3.5-5.1); SGOT/AST 15 u/l (14-36); SODIUM 138 mmol/l (137-146); TOTAL PROTEIN 6.1 g/dL (6.3-8.2)
[2022-09-12 07:03] VITALS: BP 150/74
--- NOTE | 2022-09-12 07:20 | NUR ---
PT RESTING IN SEMI FOWLERS POSITION. A/OX3 ASSESSMENT AND VS COMPLETED. HEART RHYTHM NORMAL. RESPIRATIONS UNALBORED PT PRN FOR OXYGEN. PT STATED FEELING SOB . INHALER PROVIDED. IV SITE TO LEFT HAND NOTED. S.L PT DENIES ADDITIONAL NEEDS AT THE TIME ALL SAFETY PRECAUTIONS IN PLACE CALL LIGHT INREACH.
[2022-09-12 11:43] LABS: HEMATOCRIT 43.2 % (37.0-47.0); HEMOGLOBIN 13.9 g/dl (12.0-16.0); IMMATURE GRANULOCYTES 0.3 % (0.0-5.0); MEAN CELL VOLUME 89.4 fL CALC (80.0-100.0); MEAN CORPUSCULAR HGB 28.8 pG CALC (26.0-32.0); MEAN CORPUSCULAR HGB CONC 32.2 g/dL CAL (32.0-36.0); NEUT# 4.15 thou/uL (2.00-7.15); RED BLOOD COUNT 4.83 mill/uL (4.20-5.60); RED CELL DISTRI WIDTH 12.6 % (11.5-15.5)
[2022-09-12 12:01] LABS: BUN 11 mg/dL (7-17); BUN/CREATININE RATIO 19 (12-20 (CALC)); CARBON DIOXIDE 35 mmol/l (22-30); CHLORIDE 98 mmol/l (95-108); CREATININE 0.6 mg/dL (0.5-1.0); GFR FOR AFR.AMER. > 60 ML/MIN (>=60 (CALC)); GFR OTHER RACES > 60 ML/MIN (>=60 (CALC)); SODIUM 140 mmol/l (137-146)
[2022-09-12 12:03] LABS: ANION GAP 10 (6-22 (CALC)); POTASSIUM 3.2 mmol/l (3.5-5.1)
--- NOTE | 2022-09-12 12:30 | NUR ---
PT RESTING IN HIGH FOWLERS POSITION. PT DENIED ADDITIONAL NEEDS AT THE TIME ALL SAFETY PRECAUTIONS IN PLACE CALL LIGHT INREACH.
--- NOTE | 2022-09-12 14:58 | NUR ---
02 2.5L NC 94%
[2022-09-12 15:16] VITALS: BP 150/74
--- NOTE | 2022-09-12 16:36 | NUR ---
PT EDUCATED ON DIAGNOSIS COVID/PNEUMONIA. ALL SAFETY PRECAUTIONS IN PLACE CALL LIGHT IN REACH.
--- NOTE | 2022-09-12 19:15 | NUR ---
RECIVED REPORT. PT IN BED, HIGH FOWELERS POSITION. NO SIGNS OF RESPIRATORY DISTRESS, NON LABORED BREATHING. IV SITE PATENT. PT DENIES ANY NEEDS AT THIS TIME. ALL SAEFTY PREFAUTIONS IN PLACE AT THIS TIME.
[2022-09-12 19:35] VITALS: BP 148/74
--- NOTE | 2022-09-13 00:15 | NUR ---
PT IN BED WATCHIN GTV. BREATHING REMAINS THE SAME. PT DENIES ANY NEEDS AT THIS TIME. ALL SAFETY PRECAUTIONS IN PLACE AT THIS TIMEN
--- NOTE | 2022-09-13 04:25 | NUR ---
PT RESTING IN BED, GIVEN TYLENOL FOR HEADACHE, PT REPORTED IMPROVEMENT. PT DENIES ANY NEEDS AT THIS TIME. BREATHING REMAINS THE SAME. IV SITE PATENT. ALL SAFETY AND ISOLATION PRECAUTIONS IN PLACE AT THIS TIME
[2022-09-13 05:15] VITALS: BP 135/62
[2022-09-13 06:39] VITALS: BP 135/62
--- NOTE | 2022-09-13 08:55 | NUR ---
PT RESTING IN BED, REPOSTIONED. PT HAS LEFT SIDED WEAKNESS.UPDATED PT ON CURRENT PLAN OF CARE. ASSESSMENT PERFORMED. IV PATENT. ABLE TO TOLERATE PO MEDICATION. FALL/SAFTEY PRECAUTION IN PLACE. CALL LIGHT WITHIN REACH.
--- NOTE | 2022-09-13 11:20 | NUR ---
REPOSTIONED PERFORMED. O2 IN PLACE VIA NC @3L. STATES HEADACHE PAIN IS LESS 2-10 FALL/SAFTEY PRECAUTION IN PLACE. CALL LIGHT WITHIN REACH
--- NOTE | 2022-09-13 14:07 | NUR ---
Attempted treatment at this time, nursing in with pt and asked for treatment to be held.
[2022-09-13 15:21] VITALS: BP 135/62
--- NOTE | 2022-09-13 15:57 | NUR ---
PT RESTING IN BED, REPOSTIONED. STATES NO NEEDS AT THIS TIME. FALL/SAFTEY PRECAUTION IN PLACED. CALL LIGHT WITHIN REACH
[2022-09-13 19:01] VITALS: BP 130/69
--- NOTE | 2022-09-13 19:15 | NUR ---
RECIEVED REPORT ON PT. PT IN BED WATCHING TV, BREATHING EVEN AND NON LABORED. IV SITE PATENT, SL. PT DENIES ANY PAIN OR DISCOMFORT. REQUESTED PRUNE JUICE AND WARM BLANKET. SPEECH GARBLED BUT UNDERSTANDABLE. PT DENIES ANY FURTHER NEEDS
--- NOTE | 2022-09-14 | NUR ---
PT IN BED WATCHING TV AND PLAYING GAMES ON PHONE. BREATHING REMAINS EVEN AND NON LABORED. PT DENIES ANY NEEDS AT THIS TIME.
--- NOTE | 2022-09-14 04:15 | NUR ---
PT SLEEPING IN HIGH FOWLERS POSITION, EASILY AROUSIBLE. A/I X3. BREATHING SLIGHTLY LABORED. PT DENIES PAIN, N/V OR SHORTNESS OF BREATH. IV SITE PATENT, SL. DENIES ANY FURTHER NEEDS. ALL SAFETY PRECAUTIONS IN PLACE AT THIS TIME
[2022-09-14 05:44] LABS: ANION GAP 11 (6-22 (CALC)); BUN 14 mg/dL (7-17); BUN/CREATININE RATIO 26 (12-20 (CALC)); CARBON DIOXIDE 31 mmol/l (22-30); CHLORIDE 100 mmol/l (95-108); CREATININE 0.5 mg/dL (0.5-1.0); GFR FOR AFR.AMER. > 60 ML/MIN (>=60 (CALC)); GFR OTHER RACES > 60 ML/MIN (>=60 (CALC)); SODIUM 138 mmol/l (137-146)
[2022-09-14 05:50] LABS: POTASSIUM 4.1 mmol/l (3.5-5.1)
--- NOTE | 2022-09-14 05:59 | NUR ---
patient refused daily weight.
[2022-09-14 07:08] VITALS: BP 151/73
--- NOTE | 2022-09-14 08:30 | NUR ---
PT RESTING IN BED; ASSESSMENT COMPLETED; PT MEDICATED PER MAR; ADIVISED OF POC; PT DENIES ANY NEEDS AT THIS TIME; CALL LIGHT WITHIN REACH
[2022-09-14 12:15] VITALS: BP 132/62
[2022-09-14 16:25] VITALS: BP 140/69
[2022-09-14 19:04] VITALS: BP 149/64
--- NOTE | 2022-09-14 19:15 | NUR ---
RECIEVED REPORT, PT IN BED HIGH FOWELERS POSITION. O2 IN PLACE, 1.5L. PT HAS MILD COUGH.C/O CONSTIPATION WILL MEDICATE WITH 2100 MEDS. DENIES PAIN OR DISCOMFORT. ALL SAFETY PRECAUTIONS IN PLACE AT THIS TIME
--- NOTE | 2022-09-15 | NUR ---
PT IN BED, BREATHING REMAINS THE SAME. PT DENIES ANY PAIN OR DISCOMFORT. NO BOWEL MOVEMENT AT THIS TIME. PT RECIEVING IV ANTIBIODICS AT THIS TIME. ALL SAFETY PRECAUTIONS IN PLACE AT THIS TIME
[2022-09-15 04:27] VITALS: BP 135/70
--- NOTE | 2022-09-15 04:30 | NUR ---
PT REMAINS IN HIGH FOWELERS POSITION, REFUSES TO BE REPOSITIONED. BREATHING EVEN AND NON LABORED. DENIES PAIN OR DISCOMFORT. NO BOWEL MOVEMENT AT THIS TIME. PT DENIES ANY NEEDS. ALL SAFETY AND ISOLATION PRECAUTIONS IN PLACE AT THIS TIME
[2022-09-15 07:00] VITALS: BP 140/75
--- NOTE | 2022-09-15 08:00 | NUR ---
PT RESTING IN BED, STATES NO PAIN. ABLE TO OBEY COMMANDS. ASSESSMENT PERFORMED. REORIENTATED PT TO ROOM AND CALL LIGHT SYSTEM. FALL/SAFTEY PRECAUIOTN IN PLACE, CALL LIGHT WITHIN REACH.
[2022-09-15 08:33] VITALS: BP 140/75
[2022-09-15 11:00] VITALS: BP 132/70
--- NOTE | 2022-09-15 13:02 | NUR ---
PT RESTING IN BED, MOUTH CARE PROVIDED. NO DISTRESS NOTED. FALL/SAFTEY PRECAUTION IN PLACE. CALL LIGHT WITHIN REACH
[2022-09-15 13:10] VITALS: BP 132/70
--- NOTE | 2022-09-15 13:22 | NUR ---
O2 SAT 96% ON 3L NC
[2022-09-15] MEDS ORDERED: DEXAMETHASON6 MG PO (13:27)
--- NOTE | 2022-09-15 17:50 | NUR ---
PT EATING WITH MECHANIC RECOVERY AT BEDSIDE.
--- NOTE | 2022-09-15 18:42 | NUR ---
PT RESTING IN BED AWAITING TO GO HOME. STATES NO NEEDS AT THIS TIME. FALL/SAFTEY PRECAUITON IN PLACE. CALL LIGHT WITHIN REACH.
[2022-09-15 19:21] VITALS: BP 148/68
--- NOTE | 2022-09-15 20:00 | NUR ---
RECEIVED REPORT FROM KRISTY SOUSA. PT ON ON BED HIGH FOWLERS: A&O X3. ASSESSMENT COMPLETED. O2 @ 3L VIA NASAL CANNULA IN PLACE. PUREWICK IN PLACE. NO DISTRESS OR PAIN NOTED. PT AWAITING TRANSPORTATION TO GO HOME. SAFETY PRECAUTIONS IN PLACE WITH CALL LIGHT IN REACH.
--- NOTE | 2022-09-15 21:00 | NUR ---
PATIENT TO BE D/C HOME VIA [facility]. [facility] CONTACTED AND WILL BE TRANSPORTING AROUND 0.
--- NOTE | 2022-09-15 22:46 | NUR ---
[facility] ARRIVED TO LOADMASTER PATIENT. TRANSPORT TO HOME. O2 AT HOME READY FOR USE.
--- NOTE | 2022-09-15 22:50 | NUR ---
PT EDUCATED ON DC INSTRUCTIONS. IV REMOVED: # 22 LEFT FA, CATHETER INTACT UPON REMOVAL, PT TOLERATED WELL. PT LEFT @ 2250 [facility]IA [facility]. Discharge instructions given. Patient verbalizes understanding of same. Discharged in stable condition via [facility] Transport to Home with *Other. All belongings sent with pt.
== END 2022-09-15 22:50 | disposition home health service (06) | DRG 177 ==
LOC: ED 20:46 → MS2 22:56
PROVIDERS: Family Medicine; Nurse Practitioner Family; ADMIT Internal Medicine; ATTEND Internal Medicine
PROC: XW033E5 Introduction of Remdesivir Anti-infective into Peripheral Vein, Percutaneous Approach, New Technology Group 5 (ICD-10-PCS; principal; 2022-09-08)
DX: U07.1 COVID-19 (principal); J12.82 Pneumonia due to coronavirus disease 2019; J96.01 Acute respiratory failure with hypoxia; C71.9 Malignant neoplasm of brain, unspecified; G81.94 Hemiplegia, unspecified affecting left nondominant side; E11.65 Type 2 diabetes mellitus with hyperglycemia; I10 Essential (primary) hypertension; R62.7 Adult failure to thrive; E66.01 Morbid (severe) obesity due to excess calories; F41.1 Generalized anxiety disorder; G40.909 Epilepsy, unspecified, not intractable, without status epilepticus; F32.A Depression, unspecified; T18.9XXA Foreign body of alimentary tract, part unspecified, initial encounter; X58.XXXA Exposure to other specified factors, initial encounter; T41.5X6A Underdosing of therapeutic gases, initial encounter; Z91.138 Patient's unintentional underdosing of medication regimen for other reason; Z99.81 Dependence on supplemental oxygen; Z79.4 Long term (current) use of insulin
CPT/HCPCS: J1650

== ENCOUNTER 2022-09-18 20:43 | Emergency (ER) | payer MEDICARE, OTHER ==
[~2022-09-18] VITALS: Ht 157.5 cm; Wt 99.0 kg
[~2022-09-18 20:43] MED LIST changes: +DEXAMETHASON6 MG PO
[2022-09-18 21:07] VITALS: BP 116/46
[2022-09-18 21:16] VITALS: BP 108/46
[2022-09-18 21:30] VITALS: BP 93/49
[2022-09-18 21:46] VITALS: BP 183/66
[2022-09-18 23:41] LABS: HEMATOCRIT 42.8 % (37.0-47.0); HEMOGLOBIN 13.9 g/dl (12.0-16.0); IMMATURE GRANULOCYTES 0.2 % (0.0-5.0); MEAN CELL VOLUME 88.6 fL CALC (80.0-100.0); MEAN CORPUSCULAR HGB 28.8 pG CALC (26.0-32.0); MEAN CORPUSCULAR HGB CONC 32.5 g/dL CAL (32.0-36.0); NEUT# 10.39 thou/uL (2.00-7.15); RED BLOOD COUNT 4.83 mill/uL (4.20-5.60); RED CELL DISTRI WIDTH 12.2 % (11.5-15.5)
[2022-09-19 00:04] LABS: ALBUMIN 3.7 g/dL (3.2-5.0); ALKALINE PHOSPHATASE 90 u/l (38-126); ANION GAP 9 (6-22 (CALC)); BILIRUBIN, TOTAL 0.7 mg/dL (0.0-1.4); BUN 9 mg/dL (7-17); BUN/CREATININE RATIO 15 (12-20 (CALC)); CARBON DIOXIDE 32 mmol/l (22-30); CHLORIDE 98 mmol/l (95-108); CREATININE 0.6 mg/dL (0.5-1.0); GFR FOR AFR.AMER. > 60 ML/MIN (>=60 (CALC)); GFR OTHER RACES > 60 ML/MIN (>=60 (CALC)); POTASSIUM 3.6 mmol/l (3.5-5.1); SGOT/AST 17 u/l (14-36); SODIUM 135 mmol/l (137-146); TOTAL PROTEIN 7.1 g/dL (6.3-8.2)
[2022-09-19] MEDS ORDERED: DESITIN13 % EX (02:05)
[2022-09-19 09:20] VITALS: BP 183/66
== END 2022-09-19 10:03 | disposition home or self-care (01) ==
LOC: ED 20:43
PROVIDERS: Emergency Medicine
DX: R21 Rash and other nonspecific skin eruption (principal); G82.20 Paraplegia, unspecified; I10 Essential (primary) hypertension; E11.9 Type 2 diabetes mellitus without complications; E66.01 Morbid (severe) obesity due to excess calories; F41.9 Anxiety disorder, unspecified; Z79.4 Long term (current) use of insulin

== ENCOUNTER 2023-05-13 11:07 | Inpatient (IN) | payer MEDICARE, OTHER ==
[2023-05-13] VITALS (15 sets, daily range): BP systolic 131–167; BP diastolic 53–92
[~2023-05-13] VITALS: Ht 157.5 cm; Wt 104.0 kg
[~2023-05-13 11:07] MED LIST changes: +DESITIN13 % EX
[2023-05-13 11:57] LABS: URINE BILIRUBIN - DIPSTICK NEGATIVE (NEGATIVE); URINE BLOOD DIPSTICK NEGATIVE (NEGATIVE); URINE COLOR YELLOW; URINE GLUCOSE - DIPSTICK NEGATIVE (NEGATIVE); URINE KETONE NEGATIVE (NEGATIVE); URINE PH 6.5 (4.5-8.0); URINE PROTEIN - DIPSTICK NEGATIVE (NEG-TRACE); URINE UROBILINOGEN - DIPSTICK 0.2 E.U./dL (0.2)
[2023-05-13 11:57] LABS: BASO% 0.3 % (0-3); EOS% 1.6 % (0-8); HEMATOCRIT 44.4 % (37.0-47.0); HEMOGLOBIN 13.8 g/dl (12.0-16.0); IMMATURE GRANULOCYTES 0.1 % (0.0-5.0); LYMPH% 30.8 % (15-41); MEAN CELL VOLUME 89.2 fL CALC (80.0-100.0); MEAN CORPUSCULAR HGB 27.7 pG CALC (26.0-32.0); MEAN CORPUSCULAR HGB CONC 31.1 g/dL CAL (32.0-36.0); MONO% 5.4 % (2-13); NEUT# 4.34 thou/uL (2.00-7.15); NEUT% 61.8 % (42-76); RED BLOOD COUNT 4.98 mill/uL (4.20-5.60); RED CELL DISTRI WIDTH 12.6 % (11.5-15.5)
[2023-05-13 11:58] LABS: URINE LEUK ESTERASE SMALL (NEGATIVE); URINE NITRITE - DIPSTICK NEGATIVE (Negative)
[2023-05-13 12:04] LABS: URINE BACTERIA MANY hpf
[2023-05-13 12:10] LABS: ALBUMIN 3.8 g/dL (3.2-5.0); ALKALINE PHOSPHATASE 75 u/l (38-126); ANION GAP 9 (6-22 (CALC)); BILIRUBIN, TOTAL 0.9 mg/dL (0.02-1.3); BUN 10 mg/dL (7-17); BUN/CREATININE RATIO 15 (12-20 (CALC)); CARBON DIOXIDE 33 mmol/l (22-30); CHLORIDE 102 mmol/l (95-108); CREATININE 0.6 mg/dL (0.5-1.0); GFR FOR AFR.AMER. > 60 ML/MIN (>=60 (CALC)); GFR OTHER RACES > 60 ML/MIN (>=60 (CALC)); POTASSIUM 3.2 mmol/l (3.5-5.1); SGOT/AST 19 u/l (14-36); SODIUM 140 mmol/l (137-146); TOTAL PROTEIN 7.4 g/dL (6.3-8.2)
[2023-05-14] VITALS (7 sets, daily range): BP systolic 129–147; BP diastolic 54–72
[2023-05-14 05:19] LABS: BASO% 0.2 % (0-3); EOS% 0.2 % (0-8); HEMATOCRIT 39.5 % (37.0-47.0); HEMOGLOBIN 12.7 g/dl (12.0-16.0); IMMATURE GRANULOCYTES 0.1 % (0.0-5.0); LYMPH% 23.1 % (15-41); MEAN CORPUSCULAR HGB 28.6 pG CALC (26.0-32.0); MEAN CORPUSCULAR HGB CONC 32.2 g/dL CAL (32.0-36.0); MONO% 6.5 % (2-13); NEUT# 5.82 thou/uL (2.00-7.15); NEUT% 69.9 % (42-76); RED BLOOD COUNT 4.44 mill/uL (4.20-5.60); RED CELL DISTRI WIDTH 12.6 % (11.5-15.5)
[2023-05-14 05:41] LABS: ALBUMIN 3.6 g/dL (3.2-5.0); ALKALINE PHOSPHATASE 61 u/l (38-126); BILIRUBIN, TOTAL 0.6 mg/dL (0.02-1.3); BUN 16 mg/dL (7-17); BUN/CREATININE RATIO 24 (12-20 (CALC)); CALCULATED LDLCHOLESTEROL 158 mg/dL (62-129 (CALC)); CARBON DIOXIDE 28 mmol/l (22-30); CHLORIDE 104 mmol/l (95-108); CHOLESTEROL HDL RATIO 5.5 (<4.4 (CALC)); CREATININE 0.7 mg/dL (0.5-1.0); GFR FOR AFR.AMER. > 60 ML/MIN (>=60 (CALC)); GFR OTHER RACES > 60 ML/MIN (>=60 (CALC)); HDL CHOLESTEROL 41 mg/dL (39.0-59.0); MAGNESIUM 1.9 mg/dL (1.6-2.3); SGOT/AST 17 u/l (14-36); SODIUM 139 mmol/l (137-146); TOTAL CHOLESTEROL 228 mg/dl (0-199); TOTAL PROTEIN 6.6 g/dL (6.3-8.2); TOTAL TRIGLYCERIDES 145 mg/dl (0-149); VLDL CHOLESTROL 29 mg/dl (2-49 (CALC))
[2023-05-14 05:42] LABS: ANION GAP 11 (6-22 (CALC))
[2023-05-14 05:44] LABS: POTASSIUM 4.1 mmol/l (3.5-5.1)
[2023-05-15] VITALS (8 sets, daily range): BP systolic 140–164; BP diastolic 62–91
[2023-05-16 04:08] VITALS: BP 159/71
[2023-05-16 05:31] VITALS: BP 159/71
[2023-05-16 11:13] VITALS: BP 150/81
[2023-05-16 19:31] VITALS: BP 163/84
[2023-05-17 00:23] VITALS: BP 168/79
[2023-05-17 04:00] VITALS: BP 151/70
[2023-05-17 05:11] LABS: BASO% 0.5 % (0-3); EOS% 2.4 % (0-8); HEMATOCRIT 42.3 % (37.0-47.0); HEMOGLOBIN 13.3 g/dl (12.0-16.0); LYMPH% 26.4 % (15-41); MEAN CELL VOLUME 90.4 fL CALC (80.0-100.0); MEAN CORPUSCULAR HGB 28.4 pG CALC (26.0-32.0); MEAN CORPUSCULAR HGB CONC 31.4 g/dL CAL (32.0-36.0); MONO% 5.5 % (2-13); NEUT# 3.78 thou/uL (2.00-7.15); NEUT% 65.2 % (42-76); RED BLOOD COUNT 4.68 mill/uL (4.20-5.60); RED CELL DISTRI WIDTH 12.4 % (11.5-15.5)
[2023-05-17 05:44] LABS: ALBUMIN 3.5 g/dL (3.2-5.0); ALKALINE PHOSPHATASE 66 u/l (38-126); ANION GAP 10 (6-22 (CALC)); BILIRUBIN, TOTAL 0.5 mg/dL (0.02-1.3); BUN 15 mg/dL (7-17); BUN/CREATININE RATIO 25 (12-20 (CALC)); CARBON DIOXIDE 32 mmol/l (22-30); CHLORIDE 102 mmol/l (95-108); CREATININE 0.6 mg/dL (0.5-1.0); GFR FOR AFR.AMER. > 60 ML/MIN (>=60 (CALC)); GFR OTHER RACES > 60 ML/MIN (>=60 (CALC)); POTASSIUM 4.4 mmol/l (3.5-5.1); SGOT/AST 21 u/l (14-36); SODIUM 139 mmol/l (137-146); TOTAL PROTEIN 6.7 g/dL (6.3-8.2)
[2023-05-17 07:12] VITALS: BP 155/68
[2023-05-17] MEDS ORDERED: QUETIAPINE FUMA25 MG PO (08:09)
[2023-05-17] MEDS ORDERED: ALPRAZOLAM0.5 M2 PO (08:09)
[2023-05-17] MEDS ORDERED: FLUOXETINE HCL10 MG PO (08:09)
== END 2023-05-17 14:00 | DRG 690 ==
LOC: ED 11:07 → MS2 13:49
PROVIDERS: Family Medicine; Nurse Practitioner Family; ADMIT Internal Medicine; ATTEND Internal Medicine
PROC: 0T9B70Z Drainage of Bladder with Drainage Device, Via Natural or Artificial Opening (ICD-10-PCS; principal; 2023-05-13)
DX: N39.0 Urinary tract infection, site not specified (principal); C71.9 Malignant neoplasm of brain, unspecified; J96.11 Chronic respiratory failure with hypoxia; G81.90 Hemiplegia, unspecified affecting unspecified side; R62.7 Adult failure to thrive; I10 Essential (primary) hypertension; E11.9 Type 2 diabetes mellitus without complications; E66.01 Morbid (severe) obesity due to excess calories; G40.909 Epilepsy, unspecified, not intractable, without status epilepticus; R33.9 Retention of urine, unspecified; F41.9 Anxiety disorder, unspecified; B96.89 Other specified bacterial agents as the cause of diseases classified elsewhere; Z79.4 Long term (current) use of insulin; Z86.73 Personal history of transient ischemic attack (TIA), and cerebral infarction without residual deficits; Z99.81 Dependence on supplemental oxygen; Z74.01 Bed confinement status; Z59.1 Inadequate housing; Z74.2 Need for assistance at home and no other household member able to render care; Z20.822 Contact with and (suspected) exposure to COVID-19
CPT/HCPCS: J1650